=== PATIENT | female | born 1960 | race Caucasian/White ===

== ENCOUNTER 2023-06-27 11:15 | Emergency (ER) | payer OTHER, SELFPAY ==
[2023-06-27 11:30] VITALS: BP 152/66
--- NOTE | 2023-06-27 11:43 | ED.GENMED ---
History of Present Illness
General
Chief Complaint: Dizziness
Time Seen by Provider: 06/27/23 11:43
Travel History
Have you had any contact with someone who has COVID-19?: No
Do you have any symptoms of coronavirus? Fever > 100 degrees, chills, cough, shortness of breath, sore throat, loss of taste or smell, muscle aches, or headache?: No
History of Present Illness
History of Present Illness:
HPI: The patient presents from [facility]. She has been having left upper extremity ataxia for the past 36 hours. She is on Eliquis for A-fib. She was also found to be bradycardic upon arrival and states she had been taking increased
doses of metoprolol recently but most recently has been taking 25 mg of metoprolol twice daily including yesterday and again this morning.
EXAM:
GENERAL: Well appearing in no distress
HEENT: Moist oral mucosa
CARDIOVASCULAR: No murmurs, bradycardic heart rate with occasional irregularity, No chest wall tenderness
PULMONARY: No respiratory distress, breath sounds are clear and equal
ABDOMEN: Soft with no peritoneal signs, no tenderness
NEUROLOGIC: Excellent strength all extremities, there is some mild ataxia noted in the left upper extremity, there is minimal ataxia at the left lower extremity with [id number]
PSYCHIATRIC: Appropriate mental status, normal insight and judgement
EXTREMITIES: Nontender, no edema, moves all extremities equally
SKIN: No rash, no lesions
ED COURSE:
11:55 AM: I initially evaluated patient
NUMBER AND COMPLEXITY OF PROBLEMS ADDRESSED AT THE ENCOUNTER
� Chronic conditions affecting care: A-fib, high blood pressure, hyperlipidemia, she is a smoker
� Acute Exacerbation and/or Progression of Chronic Illness: This is an acute problem
� Differential Diagnosis includes: CVA, hemorrhagic stroke, symptomatic bradycardia, heart block
AMOUNT AND/OR COMPLEXITY OF DATA TO BE REVIEWED AND ANALYZED
� I performed an independent evaluation of and my interpretation is:
EKG: Sinus with frequent pauses of just over 2 seconds
[address]: CT brain shows no acute abnormality
X-rays:
Laboratory Studies: Hemoglobin continues to drop now down to 8.9, chemistries relatively unremarkable however elevation of BUN is noted. Bicarb slightly high at 33.
Other:
� Review of other/old records: The patient had a hemoglobin of 9.8 on 01/02/2023
� Clinical information was obtained by an independent historian: I spoke to cousin at bedside
� Prescriptions/Medications Considered but not given:
� Further testing considered but not performed:
RISK OF COMPLICATIONS AND/OR MORBIDITY OR MORTALITY OF PATIENT MANAGEMENT
� Social determinants of health affecting care: Lives at home
� Discussion with other providers: I briefly notified Dr. Pickens. I notified Dr. Durán of the patient does not want to stay in the hospital and the patient is to follow-up with him as well as an outpatient.
� Escalation of care including admission/observation vs risk of discharge considered: The patient has heart rates as low as 30. I am concerned of the left upper extremity ataxia. This is new over the past 36 hours. I am also
concerned about the drop in the hemoglobin. I did perform a digital rectal examination which revealed an empty rectal vault and no blood to test but will was tested was negative. At approximately 1:30 PM, the patient tells me that she absolutely
will not stay in the hospital. I went over risks and benefits of staying in the hospital. I informed her that her heart rate at times is severely low, it appears that she likely has had a stroke recently, and the anemia is much worse than prior.
Given the worsening anemia I recommended against any antiplatelets at this time.
Past History
Past History
ED Past Medical History: GERD, HTN, Hypercholesterolemia and Other (Bilateral hernias's)
ED Past Surgical History: Cholecystectomy and Other (Stents with repair of AAA)
Social History
Tobacco: Non-smoker
Alcohol: Occasional
Personal:
Living: with family
Phy Exam
Physical Exam
Physical Exam:
See HPI
Course
Orders/Labs/Results
Orders:
Orders
06/27/23 11:32
Electrocardiogram (*1) Urgent
Reason for Study: Chest Pain
EKG- Treatment ONCE
06/27/23 11:46
Complete Blood Count/With Diff Urgent
Magnesium Urgent
Comment: MAG ADDED ON BY FLOOR NOON -11-12
TSH Reflex To Free T4 Urgent
Troponin I Urgent
06/27/23 11:56
CT Head W/o Iv Contrast Urgent
Comment:
Reason For Exam: 36hr LUE ataxia
06/27/23 12:01
Add On- LAB Urgent
Tests Added?: magnesium
06/27/23 12:56
Comprehensive Metabolic Panel Urgent
Abnormal Lab Results
06/27/23 06/27/23
11:46 12:56
RBC 3.69 L 10^6/uL
(4.20-5.40)
Hgb 8.9 L g/dL
(12.0-16.0)
Hct 28.9 L %
(37.0-47.0)
MCV 78.3 L fL
(81.0-99.0)
MCH 24.1 L pg
(27.0-31.0)
MCHC 30.8 L g/dL
(33.0-37.0)
RDW 17.3 H %
(11.5-14.5)
Absolute Lymphs (auto) 0.9 L 10^3/uL
(1.2-3.4)
Absolute Monos (auto) 0.7 H 10^3/uL
(0.1-0.6)
Lymphocytes % 17.5 L %
(20.5-51.1)
Monocytes % 12.5 H %
(1.7-9.3)
Carbon Dioxide 33 H mmol/L
(22-30)
BUN 25 H mg/dl
(7-17)
06/27/23 11:46
06/27/23 12:56
Vital Signs
Initial and Last Documented VS:
Initial Vital Signs
Temp Pulse Resp BP Pulse Ox
98.2 F 75 16 152/66 98
06/27/23 11:30 06/27/23 11:30 06/27/23 11:30 06/27/23 11:30 06/27/23 11:30
Last Documented Vital Signs
Temp Pulse Resp BP Pulse Ox
98.2 F 43 12 116/46 93
06/27/23 11:30 06/27/23 13:30 06/27/23 13:30 06/27/23 12:15 06/27/23 13:40
*Critical Care Note
Total Time (30-74mins, 75-104mins- exclusive of procedures): Not Applicable
ED Attending Note
-
Portions of this chart may have been created with voice recognition software.� Occasional wrong word or��sound alike� substitutions may have occurred due to the inherent limitations of voice recognition software.
Discharge Plan
Departure
Patient Disposition: Against Medical Advice
Date of Disposition: 06/27/23
Time of Disposition: 13:53
Patient with high blood pressure during this ER visit?: Yes
Discharge Problem:
CVA (cerebral vascular accident)
Prescriptions:
No Action
Aldomine
2.5 mg PO DAILY
omeprazole [Prilosec] 10 MG capsule,delayed release(DR/EC)
10 mg PO DAILY
pantoprazole 40 MG tablet,delayed release (DR/EC)
40 mg PO BID
lisinopril 10 MG tablet
10 mg PO DAILY
metoprolol tartrate 50 MG tablet
50 mg PO DAILY
multivitamin with iron [Daily Multiple Vitamins/Iron] 1 EACH tablet
1 ea PO DAILY
calcium-vitamin D3-vitamin K 1 EACH tablet,chewable
1 ea PO BID
cephalexin 500 MG capsule
500 mg PO BID Qty: 19 0RF
tramadol 50 MG tablet
50 mg PO Q8HPRN PRN (Reason: Moderate pain) Qty: 10 0RF
Referrals:
Cisco Durán MD [Active] - Follow up in 2-3 days
Titus Morin MD [Active] - Follow up in 2-3 days
NONE,* [Family Provider] -
Activity Restrictions/Additional Instructions:
I have offered and strongly recommend that you stay in the hospital for further evaluation due to concerns that you may have had a stroke, your hemoglobin has been dropping, and your heart rate is extremely low. Since your heart rate is so low at
times, I suggest that you stop taking metoprolol for now. Uou have elected to leave AGAINST MEDICAL ADVICE. You are welcome to return here if worse. The CAT scan of your brain did not show any acute abnormality but this does not mean that you did
not have a stroke. I have given you the contact information for a local neurologist and I also recommend that you follow-up with your department head as well.
Interventions
Interventions:
*General Assessment Last Done: 06/27/23 11:30
ED- Neurological Assessment Last Done: 06/27/23 11:50
ED- Cardiac Assessment Last Done: 06/27/23 11:50
ED Swallowing Screen Last Done: 06/27/23 11:56
[2023-06-27 11:45] VITALS: BP 139/64
[2023-06-27 11:50] VITALS: BMI 26.0
[2023-06-27 12:02] LABS: % Basophils 0.8 % (0-2); % Eosinophils 2.5 % (0-6); % Immature Granulocytes 0.2 % (0-0.5); % Lymphocytes 17.5 % (20.5-51.1); % Monocytes 12.5 % (1.7-9.3); % Neutrophils 66.5 % (42.2-75.2); Absolute Eosinophils 0.1 10^3/uL (0-0.7); Absolute Lymphocytes 0.9 10^3/uL (1.2-3.4); Absolute Monocytes 0.7 10^3/uL (0.1-0.6); Absolute Neutrophils 3.5 10^3/uL (1.4-6.5); Hematocrit 28.9 % (37.0-47.0); Hemoglobin 8.9 g/dL (12.0-16.0); Mean Corp Hgb Conc. 30.8 g/dL (33.0-37.0); Mean Corpuscular Hgb 24.1 pg (27.0-31.0); Mean Corpuscular Volume 78.3 fL (81.0-99.0); Mean Platelet Volume 10.2 fL (7.4-10.4); Nucleated Red Blood Cells % 0 %; Platelet Count 234 10^3/uL (130-400); Red Blood Cell Count 3.69 10^6/uL (4.20-5.40); Red Cell Dist. Width 17.3 % (11.5-14.5); White Blood Cell Count 5.3 10^3/uL (4.8-10.8)
[2023-06-27 12:11] VITALS: BP 118/83
[2023-06-27 12:15] VITALS: BP 116/46
[2023-06-27 12:33] LABS: Troponin I < 0.012 ng/ml
[2023-06-27 12:52] LABS: TSH Reflex To Free T4 2.16 uIU/ml (0.47-4.68)
[2023-06-27 13:28] LABS: ALT (SGPT) 13 U/L (0-35); AST (SGOT) 30 U/L (14-36); Albumin 3.6 g/dl (3.5-5.0); Alkaline Phosphatase 112 U/L (38-126); Blood Urea Nitrogen 25 mg/dl (7-17); Calcium 8.7 mg/dl (8.4-10.2); Carbon Dioxide 33 mmol/L (22-30); Chloride 104 mmol/L (98-107); Estimated Creatinine Clearance 58 ml/min; Glucose 95 mg/dl (70-99); Potassium 4.4 mmol/L (3.5-5.1); Sodium 136 mmol/L (135-145); Total Bilirubin 0.7 mg/dl (0.2-1.3); Total Protein 6.3 g/dl (6.3-8.2); eGFR > 60.00
--- NOTE | 2023-06-27 13:45 | EDRN ---
pt ambulating off unit. Was able to be redirected. LAbs resulted MD made aware. Pt continues to report the urge to leave AMA. PIV removed per pt request.
[2023-06-27 15:19] LABS: Magnesium 1.6 mg/dl (1.6-2.3)
== END 2023-06-27 14:10 | disposition left against medical advice (07) ==
LOC: EMR 11:15
PROVIDERS: Emergency Medicine; EMERGENCY PHYSICIAN Emergency Medicine
DX: I63.9 Cerebral infarction, unspecified (principal); I48.91 Unspecified atrial fibrillation; K21.9 Gastro-esophageal reflux disease without esophagitis; I10 Essential (primary) hypertension; E78.00 Pure hypercholesterolemia, unspecified; Z79.01 Long term (current) use of anticoagulants; Z79.899 Other long term (current) drug therapy; Z90.49 Acquired absence of other specified parts of digestive tract
CPT/HCPCS: 99284; 70450; 80053; 83735; 84443; 84484; 85025; 93005

== ENCOUNTER 2023-07-02 13:34 | Inpatient (IN) | payer OTHER, SELFPAY ==
[2023-06-29 22:20] VITALS: BP 148/75
[2023-06-29 22:49] VITALS: BP 165/76
[2023-06-29 23:01] VITALS: BP 165/76
--- NOTE | 2023-06-29 23:03 | ED.GENMED ---
History of Present Illness
General
Chief Complaint: Breathing Problem
Source: patient
Time Seen by Provider: 06/29/23 22:43
Nursing documentation reviewed up to this point in time: agreed with
Travel History
Have you had any contact with someone who has COVID-19?: No
Do you have any symptoms of coronavirus? Fever > 100 degrees, chills, cough, shortness of breath, sore throat, loss of taste or smell, muscle aches, or headache?: Yes
Symptoms:: shortness of breath
History of Present Illness
History of Present Illness:
Patient is a 62-year-old female with past medical history of A-fib AAA perforated ulcer hypertension presents to the ER for evaluation. Patient was seen here June 27 and signed out against medical vice. Patient at that time was initially sent
by cardiology for ataxia(left upper extremity). Patient reports she started with difficulty walking balance issues a week ago and noticed left arm weakness left weakness several days -1 week ago. She continues to complain of weakness in her left
upper extremity left lower extremity. She also complains of swelling to left upper lower extremity. She is on anticoagulation for A-fib and has not missed a dose. She does complain of shortness of breath with talking. She denies any chest pain.
Past History
Past History
ED Past Medical History: GERD, HTN, Hypercholesterolemia and Other (Bilateral hernias's)
ED Past Surgical History: Cholecystectomy and Other (Stents with repair of AAA)
Social History
Tobacco: Non-smoker
Alcohol: Occasional
Personal:
Living: with family
Phy Exam
General Physical Exam
General Presentation: no apparent distress
General age: appears stated age
General Skin: warm and dry
General Habitus: normal
General Mental: alert
General Hydration: appears well hydrated
Cardiovascular Exam
Cardiovascular Exam: normal peripheral pulses and bradycardia
Pulmonary Exam
Pulmonary Exam: lungs clear and no respiratory distress
Gastrointestinal Exam
Gastrointestinal Exam: soft and other (brown stools heme positive )
Neurological Exam
Neurological Exam: alert, oriented x3, no sensory deficits and other (weakness to left u/e left l/e )
Cerebellar
Cerebellar Function: other (left finger to nose is abnormal )
Musculoskeletal Exam
Musculoskeletal Exam: full ROM and other (+ swelling to lle and lue )
Skin Exam
Skin Exam: normal color and warm/dry
Psychiatric Exam
Psychiatric Exam: normal mood/affect
Scores
Heart Failure Risk
Heart Failure Risk Score: Not Applicable
Course
Orders/Labs/Results
Orders:
Orders
06/29/23 22:24
EKG [Electrocardiogram (*1)] Urgent
Reason for Study: Shortness of Breath
06/29/23 22:25
EKG- Treatment ONCE
06/29/23 22:58
Cardiac Monitoring- Treatment ONCE
IV Insert/Care/Rem.- Treatment PRN
06/29/23 22:59
BNP [NT-proBNP] Urgent
Complete Blood Count/With Diff Urgent
Comprehensive Metabolic Panel Urgent
Troponin I Urgent
06/29/23 23:13
Lorazepam [Ativan] 0.5 mg PO NOW STA
06/30/23 00:00
US Periph Venous LOWER Ext LT Urgent
Reason For Exam: swelling
US Periph Venous UPPER Ext LT Urgent
Reason For Exam: swelling
06/30/23 00:16
CXR2 [CR Chest - 2 Views ] Urgent
Comment:
Reason For Exam: SOB
06/30/23 00:35
Lorazepam [Ativan] 0.5 mg IV NOW STA
06/30/23 00:37
Admit/Transfer Patient As Directed
Co-Sign Provider:
Level of Care: Observation services
Assign to:: Telemetry
Physician / Group: Hernando
Diagnosis: Weakness / Ataxia
Reason for Telemetry: CVA/TIA
Date to Stop Telemetry: 07/03/23
Time to Stop Telemetry: 11:00
06/30/23 00:48
Code Status As Directed
Resuscitation Status: Full Code
06/30/23 01:00
Flush (0.9% Sodium Chloride) [Flush (Nss)] See Dose Instructions IV PER PROTOCOL
07/03/23 11:00
DC Protocol for Telemetry ONCE
Abnormal Lab Results
06/29/23
22:59
RBC 3.36 L 10^6/uL
(4.20-5.40)
Hgb 8.0 L g/dL
(12.0-16.0)
Hct 25.0 L %
(37.0-47.0)
MCV 74.4 L fL
(81.0-99.0)
MCH 23.8 L pg
(27.0-31.0)
MCHC 32.0 L g/dL
(33.0-37.0)
RDW 17.4 H %
(11.5-14.5)
Absolute Lymphs (auto) 0.9 L 10^3/uL
(1.2-3.4)
Absolute Monos (auto) 0.7 H 10^3/uL
(0.1-0.6)
Lymphocytes % 19.3 L %
(20.5-51.1)
Monocytes % 13.5 H %
(1.7-9.3)
Sodium 134 L mmol/L
(135-145)
06/29/23 22:59
06/29/23 22:59
Vital Signs
Initial and Last Documented VS:
Initial Vital Signs
Temp Pulse Resp BP Pulse Ox
98.2 F 56 18 148/75 97
06/29/23 22:20 06/29/23 22:20 06/29/23 22:20 06/29/23 22:20 06/29/23 22:20
Last Documented Vital Signs
Temp Pulse Resp BP Pulse Ox
98.2 F 61 16 179/65 93
06/29/23 22:20 06/30/23 00:47 06/30/23 00:30 06/30/23 00:00 06/30/23 00:47
Auto Leasing Manager consulted with Physician
Auto Leasing Manager consulted with physician?: Yes
Name of Physician Consulted: Jyotsna
MDM/Problems Addressed
Differential Diagnosis Includes:
Not limited to anemia, CVA, DVT
MDM/Problems Addressed:
Patient is a 62-year-old female who was here in the ER 2 days ago for ataxia. Patient was seen by cardiology at the time but signed out AMA. Patient is here back for evaluation. She continues with left upper lower extremity weakness. She also
has complaints of left upper lower extremity swelling. She does feel short of breath at times with exertion but denies any chest pain. Patient arrives awake alert no acute distress. She does have obvious left upper and left lower extremity
weakness. Does have swelling to left lower extremity as well as left hand. She says that she has not missed a dose of Eliquis she is on this for history of A-fib and is followed by [facility].
Ultrasound ordered. Patient was found to be anemic previously 2 days ago in the ER and was also found to be bradycardic as low as the 30s in the ER. Today patient's hemoglobin is 8.0 which is a decrease from 8.9 on the sixth. She has brown stools
but heme positive. Will admit for anemia left side weakness poss cva
Chronic conditions affecting care:
afib on eliquis now anemic heme pos stools
*Radiology
Radiology exam reviewed: preliminary read by ED provider
*Pulse Oximetry
Patient hypoxic: no
*EKG
Interpreted by ED Provider?: Yes
Heart Rate: 63
Rate: normal
Rhythm: sinus
Ischemia: non-specific ST changes
*Critical Care Note
Total Time (30-74mins, 75-104mins- exclusive of procedures): Not Applicable
ED Attending Note
-
Portions of this chart may have been created with voice recognition software.� Occasional wrong word or��sound alike� substitutions may have occurred due to the inherent limitations of voice recognition software.
Discharge Plan
Departure
Patient Disposition: Admit
Date of Disposition: 06/30/23
Time of Disposition: 00:17
Admit to: Telemetry
Admit to doctor: hernando
Presentation/result/management discussed w/ accepting MD/DO: Hospitalist
Patient with high blood pressure during this ER visit?: Yes
Covid-19: Not Applicable
Discharge Problem:
Bradycardia, left upper and lower extremity weakness, Anemia
Prescriptions:
No Action
citalopram [Celexa] 20 mg Tablet
20 mg PO DAILY
Excedrin Extra Strength 250-250-65 mg Tablet
1 tab PO Q6H PRN (Reason: Pain)
Eliquis 5 mg Tablet
5 mg PO BID
metoprolol tartrate 37.5 mg Tablet
37.5 mg PO BID
Referrals:
NONE,* [Family Provider] -
[2023-06-29 23:19] LABS: % Basophils 0.4 % (0-2); % Eosinophils 3.7 % (0-6); % Immature Granulocytes 0.4 % (0-0.5); % Lymphocytes 19.3 % (20.5-51.1); % Monocytes 13.5 % (1.7-9.3); % Neutrophils 62.7 % (42.2-75.2); Absolute Eosinophils 0.2 10^3/uL (0-0.7); Absolute Lymphocytes 0.9 10^3/uL (1.2-3.4); Absolute Monocytes 0.7 10^3/uL (0.1-0.6); Mean Corpuscular Hgb 23.8 pg (27.0-31.0); Mean Corpuscular Volume 74.4 fL (81.0-99.0); Mean Platelet Volume 9.8 fL (7.4-10.4); Nucleated Red Blood Cells % 0 %; Platelet Count 198 10^3/uL (130-400); Red Blood Cell Count 3.36 10^6/uL (4.20-5.40); Red Cell Dist. Width 17.4 % (11.5-14.5); White Blood Cell Count 4.8 10^3/uL (4.8-10.8)
[2023-06-29] MEDS: ATIVAN 0.5 MG PO (23:19)
[2023-06-29 23:40] LABS: NT-proBNP 1590 pg/ml; Troponin I 0.015 ng/ml
[2023-06-29 23:46] LABS: ALT (SGPT) 12 U/L (0-35); Albumin 3.7 g/dl (3.5-5.0); Blood Urea Nitrogen 17 mg/dl (7-17); Calcium 9.1 mg/dl (8.4-10.2); Carbon Dioxide 28 mmol/L (22-30); Chloride 105 mmol/L (98-107); Glucose 88 mg/dl (70-99); Sodium 134 mmol/L (135-145); Total Bilirubin 0.7 mg/dl (0.2-1.3); Total Protein 6.3 g/dl (6.3-8.2); eGFR > 60.00
[2023-06-30] VITALS (12 sets, daily range): BP systolic 114–182; BP diastolic 55–106; PULSE 44–89; O2SAT 97–98; BMI 25.0
[2023-06-30 00:08] LABS: AST (SGOT) 33 U/L (14-36); Alkaline Phosphatase 102 U/L (38-126)
[2023-06-30] MEDS: ATIVAN 0.5 MG IV (00:44)
--- NOTE | 2023-06-30 00:53 | HPS.HSE ---
Family Physician
-
Family Physician: * NONE
Chief Complaint
-
Weakness, Swelling, Pain
History of Present Illness
Patient is a 62y F with PMH significant for hypertension and atrial fibrillation who presents to ED complaining of anxiety, SOB, neck pain and weakness. Patient is restless and anxious at the time of my examination and history is somewhat
limited as a result. Patient reports symptoms of pain 'all over', anxiety, shortness of breath, nausea, etc for about one week or so. She was seen here in the ED on 06/27 for similar symptoms - though primarily for weakness / ataxia of the LUE.
Hospitalization was recommended at that time; however, patient refused and signed out of the ED AMA.
Patient was noted to be bradycardic into the 30s on that visit and was advised to stop taking her metoprolol.
Patient admits that she had been taking 'extra doses' due to sense of heart racing and palpitations. She is not sure how many extra pills she took. She states that she has not taken any metoprolol since her 06/27 visit.
Patient denies any recent injury, fall or trauma. She has scattered crusted lesions, ecchymoses, etc which she attributes to a puppy at home / scratches.
She complains of pain in the neck and notes pain shooting into both arms with rotation of the neck. She notes weakness on the L in the arm and the leg. These symptoms have been present for about one week and are not improving / progressing.
Patient states that she had a stroke in 03/2022 with facial droop and aphasia. She states that her symptoms fully resolved and she had no residual following this.
At the time of my examination, patient is anxious / mildly agitated and is quite restless. Patient states that she is a 'social' drinker. She estimates about 4 drinks per week. She does admit that she had alcohol today and yesterday.
Patient also states that she takes Excedrin every day - typically about 4 tabs daily - for various 'aches and pains'.
Medical History
Past Medical History
Past Medical History: Reports Other
Additional Past Medical History:
Paroxysmal Atrial Fibrillation
Prior CVA
Hypertension
Bladder Mass
Anxiety / Depression
Past Surgical History: Reports Other
Additional Past Surgical History:
Hernia Repair
Bladder Mass Excision
Open Cholecystectomy (Ruptured GB / Sepsis)
Social History
Tobacco: Smoker (Current every day smoker.)
Alcohol: Occasional (Patient states about 4 per week. Admits to daily use each of the past several days.)
Family History
Family History: Not pertinent
Allergies / Home Medications
Allergies reflects when Allergies were last updated in [employer].
Home Medications with original date entered in [facility]
Allergy/Medication List:
Allergies
Allergy/AdvReac Type Severity Reaction Status Date / Time
Sulfa (Sulfonamide Allergy Unknown Verified 06/29/23 22:23
Antibiotics)
Home Medications
apixaban 5 mg tablet (Eliquis) 5 mg PO BID 06/30/23
jyietls-ufnnxluxwbrpy-yzgcraoa 250 mg-250 mg-65 mg tablet (Excedrin Extra Strength) 1 tab PO Q6H PRN Pain 06/30/23
citalopram 20 mg tablet (Celexa) 20 mg PO DAILY 06/30/23
metoprolol tartrate 37.5 mg tablet 37.5 mg PO BID 06/30/23
Review of Systems
-
History Source: Patient
A 12 point ROS was completed and negative except as noted: Yes
Constitutional: Reports Fatigue; Denies Fever or Chills
EENT: Denies Sore Throat
Respiratory: Reports Trouble Breathing; Denies Cough
Cardiac: Reports Palpitations; Denies Chest Pain, Diaphoresis or Syncope
Abdomen/GI: Reports Nausea; Denies Abdominal Pain, Vomiting, Diarrhea, Bloody Stools, Black Stools or Anorexia
: Denies Dysuria, Frequency or Flank Pain
Musculoskeletal: Reports Joint Pain, Joint Swelling, Edema (Left arm and leg.) and Other (Neck pain.)
Neurological: Reports Dizzy, Headache, Weakness, Numbness and Other (Ataxia)
Psych: Reports Depression and Anxiety
Physical Exam
Vital Signs
Vital Signs
Temp Pulse Resp BP Pulse Ox
98.2 F 58 20 165/76 95
06/29/23 22:20 06/29/23 23:01 06/29/23 23:01 06/29/23 23:01 06/29/23 23:01
Physical Exam
General: Other (62y F restless and anxious in moderate distress.)
HEENT: Moist mucous membranes and PERRLA
Respiratory: Clear; No Wheezes, Rales or Rhonchi
Cardiac: S1/S2 and Regular Rhythm; No Murmur
GI: Soft, Non Tender, Non Distended and Normal Bowel Sounds
Musculoskeletal: No Clubbing, No Cyanosis and Other (1+ pitting edema LUE and LLE.)
Skin: Other (Scattered crusted lesions / healing excoriations and ecchymoses.)
Neuro: Awake, Alert and Other (Weakness in L hip flexion and L shoulder movements / ABduction. Distal strength (knee and elbow) seems intact. No facial droop. Speech is clear / coherent.)
Psych: Anxious
Laboratory Results
-
06/29/23 22:59
06/29/23 22:59
Laboratory Results
Total Bilirubin 0.7 mg/dl (0.2-1.3) 06/29/23 22:59
AST 33 U/L (14-36) 06/29/23 22:59
ALT 12 U/L (0-35) 06/29/23 22:59
Alkaline Phosphatase 102 U/L (38-126) 06/29/23 22:59
Troponin I 0.015 ng/ml 06/29/23 22:59
Impression/Plan
-
A/P: Patient is a 62y F with PMH significant for A-Fib, anxiety and hypertension who presents to ED for evaluation of myriad complaints.
Left Sided Weakness
Prior CVA
Neck Pain
- Observe overnight for further evaluation and treatment.
- Symptoms have been present for one week and not a candidate for TNKase, etc.
- CT head done 06/27 was unremarkable.
- Follow for changes in Neuro exam.
- MRI / Neuro eval in AM.
- PT / OT / Speech evaluations.
- Check AM lipids.
- Daily ASA for now and will hold Eliquis (see below).
- Given concurrent neck discomfort and symptoms that are occasionally noted as bilateral - will check MR neck as well for evidence of compressive radiculopathy.
Benign Hypertension
- Hold metoprolol given recent issues with bradycardia (likely due to overdose / inappropriate use).
- Begin losartan for BP control. Hydralazine as needed for very high BP.
- Adjust regimen as needed for adequate BP control.
Paroxysmal Atrial Fibrillation
Palpitations / Bradycardia (iatrogenic)
- Monitor on telemetry overnight.
- Current in sinus rhythm in the 60s.
- Continue to hold metoprolol for now as noted above.
- Patient admits to taking several extra doses for palpitations recently.
Microcytic Anemia
Heme Positive Stool
- Acuity / chronicity of this is unclear with Hgb = 9.8 in December 2022.
- Microcytosis likely reflects iron deficiency and probable chronic GI losses.
- Patient admits to regular Excedrin use and suspect alcohol use is understated as well (see below).
- Hold Eliquis and Excedrin. Continue low-dose ASA alone for now with suspected CVA symptoms as noted above.
- IV PPI BID.
- GI evaluation for possible endoscopic examination.
- Follow H&H for any changes. Monitor for overt evidence of active blood loss.
Anxiety / Depression
Alcohol Use Disorder (possible)
- Patient extremely restless in the ED. Reports prior history of 'panic attacks' - 2 episodes in her life.
- Admits to alcohol use today and yesterday - even with recent health issues, ED visit of 2/6, etc.
- ? understated frequency / volume of use.
- Follow MSAS for now. Treat symptoms of withdrawal and / or anxiety with PRN BZDs.
- Check alcohol level, UDS, etc.
DVT Prophylaxis: US pending to rule out LLE and LUE clots given edema. GI bleeding possibility as noted above. Avoid mechanical or pharmacologic prophylaxis for now. SCDs can be started if US are negative.
Code Status: Full
[2023-06-30 02:35] LABS: Hematocrit 26.4 % (37.0-47.0); Hemoglobin 8.6 g/dL (12.0-16.0); Mean Corp Hgb Conc. 32.6 g/dL (33.0-37.0); Mean Corpuscular Hgb 24.4 pg (27.0-31.0); Mean Platelet Volume 9.8 fL (7.4-10.4); Platelet Count 215 10^3/uL (130-400); Red Blood Cell Count 3.52 10^6/uL (4.20-5.40); Red Cell Dist. Width 17.4 % (11.5-14.5); White Blood Cell Count 4.9 10^3/uL (4.8-10.8)
[2023-06-30] MEDS: ULTRAM 50 MG PO ×3 (02:44→16:41)
[2023-06-30 02:55] LABS: Iron 37 ug/dl (37-170)
[2023-06-30 02:57] LABS: Blood Urea Nitrogen 18 mg/dl (7-17); Calcium 9.3 mg/dl (8.4-10.2); Carbon Dioxide 33 mmol/L (22-30); Chloride 104 mmol/L (98-107); Estimated Creatinine Clearance 74 ml/min; Glucose 102 mg/dl (70-99); HDL Cholesterol 60 mg/dl; LDL Cholesterol, Calculated 61 mg/dl; Potassium 4.6 mmol/L (3.5-5.1); Sodium 137 mmol/L (135-145); Total Cholesterol 139 mg/dl (50-199); Triglyceride 93 mg/dl (10-149); Very Low Density Lipoprotein 18 mg/dl (0-30); eGFR > 60.00
[2023-06-30 03:05] LABS: Percent Saturation 8 % (20-50); Total Iron Binding Capacity 424 ug/dl (265-497)
[2023-06-30 03:06] LABS: Alcohol None Detected
[2023-06-30] MEDS: LOPRESSOR 5 MG IV (03:13)
[2023-06-30 03:27] LABS: TSH Reflex To Free T4 0.57 uIU/ml (0.47-4.68)
[2023-06-30 04:26] LABS: Amphetamines Negative (Negative); Barbiturates Negative (Negative); Benzodiazepines Negative (Negative); Buprenorphine Negative (Negative); Cocaine Negative (Negative); Marijuana Negative (Negative); Methadone Negative (Negative); Methamphetamines Negative (Negative); Opiates Negative (Negative); Phencyclidine Negative (Negative); Tricyclic Antidepressants Negative (Negative)
[2023-06-30] MEDS: TYLENOL 650 MG PO ×2 (06:31→20:32)
--- NOTE | 2023-06-30 07:45 | CON.NEURO ---
Neuro Assessment/Plan
Assessment
IMPRESSIONS/RECOMMENDATIONS:
Abrupt change in left arm and leg strength in a patient with prior stroke described as including symptoms of aphasia
Differential diagnosis would include recrudescence of presumed right middle cerebral artery ischemic stroke, recurrent ischemic stroke, cervical spine myelitis
Plan
Check MRI of brain
Check MRI of cervical spine based on the patient's reported significant neck pain at the start of symptomatology
Consider lumbar puncture
No indication at this time for the discontinuance of apixaban based on the patient's longstanding symptomatology
This time for the use of atorvastatin based on low total cholesterol and low LDL
Rehabilitation evaluations
DVT prophylaxis
Check blood work for potential metabolic abnormalities
Provide B12 replacement if level less than 400
Provide iron by IV and by mouth if ferritin less than 75 to reduce restlessness
Will continue to follow patient. Thank you.
Consultation
Order
Date of Consultation: 06/30/23
Requesting Provider: Hospitalists
Reason for Consult: Left-sided weakness
Subjective/Objective
Subjective Data
Date of Service: June 30, 2023
Patient presented to this [facility]'s emergency department on June 27, 2023 due to left upper and lower extremity weakness of new onset as well as gait instability. After presenting, the patient signed out AGAINST MEDICAL ADVICE, returning last
evening. Of note is that in her presentation on June 27, the patient was found to have profound bradycardia with heart rates in the 30s and significant anemia.
Started then progressed and now 'no dexterity in my hand.' Patient also reported having difficulty with ambulation and falling frequently without head injury. At the time of onset of left hemibody weakness, the patient also reported significant
neck pain. Patient reports not having had similar left-sided weakness previously although she does report having had a stroke in March 2022 associated with significant aphasia. Treatment was not in this hospital and she reports that she was
subsequently placed on apixaban as a preventative therapy.
Currently, the patient reports that her left sided weakness has not been progressive although it is debilitating. There are no known additional associated symptoms and no known modifying factors.
Objective Data
Vital Signs
Temp Pulse Resp BP Pulse Ox
36.3 C 100 18 144/73 96
06/30/23 04:37 06/30/23 04:37 06/30/23 04:37 06/30/23 04:37 06/30/23 04:37
Lab Results
06/30/23 02:23
06/30/23 02:23
Sodium 137 mmol/L (135-145) 06/30/23 02:23
Potassium 4.6 mmol/L (3.5-5.1) 06/30/23 02:23
BUN 18 mg/dl (7-17) H 06/30/23 02:23
Glucose 102 mg/dl (70-99) H 06/30/23 02:23
Calcium 9.3 mg/dl (8.4-10.2) 06/30/23 02:23
Abf-Y-Cvbbygfmmgt Pept 1590 pg/ml 06/29/23 22:59
LDL Cholesterol, Calc 61 mg/dl 06/30/23 02:23
Ur Buprenorphine Negative (Negative) 06/30/23 03:53
Patient Allergies
Sulfa (Sulfonamide Antibiotics) Allergy (Verified 06/29/23 22:23)
Unknown
CVA Assessment
Onset of Stroke Symptoms
Date of onset of symptoms: 06/19/23
Time of onset of symptoms: 06:00
Time pt last seen normal is known: Yes
Date last time pt seen normal: 06/19/23
Time last time pt seen normal: 02:00
Modified Jasper Score (MRS)
-
MRS Score:
Review of Systems
-
History Source: Patient
All other systems: Reviewed and negative
EENT: Negative Decreased Vision or Swallowing Difficulty
Respiratory: Other (PAUL); Negative Trouble Breathing
Cardiac: Negative Chest Pain
Abdomen/GI: Negative Incontinence of Stool
Genitourinary: Negative Incontinence
Musculoskeletal: Neck Pain (started 06/19/2023 worsening); Negative Back Pain
Neuro: Dizzy, Headache and Other (falling 3x by collapse no head injury)
Physical Exam
-
General: No Apparent Distress and Appears Stated Age
Eyes: OU Absent Papilledema, Round OU, Seatac Conjunctivae and No Ptosis
HEENT: Anicteric and Moist Mucous Membranes
Neck: Full Range of Motion
Respiratory: No Dyspnea
Cardiac: No JVD
GI: Non-distended
Skin: Other (Numerous cuts and abrasions the patient has attributed to her dog)
Extremities: No Clubbing, No Cyanosis and No Edema
Psych: Negative Intact Judgement/Insight
Extended Neurological Exam
Mood & Affect: Negative Affect Unremarkable (Easily irritable)
Attention Span & Concentration: Awake, Alert, Interactive, Closes Eyes after Stimulation and Mild Difficulty with 2 Step Request
Memory: Unremarkable
Tremor: Hand Tremor Absent and Head Tremor Absent
Speech: Quality Unremarkable and Quantity Unremarkable
Cranial Nerve II: Left Eye: Pupillary Reactivity Unremarkable, Pupillary Size Unremarkable and Visual Ferguson Intact
Cranial Nerve II: Right Eye: Pupillary Reactivity Unremarkable, Pupillary Size Unremarkable and Visual Ferguson Intact
Cranial Nerves III, IV, : Extraocular Movement: Extraocular Movement Full in all Directions
Cranial Nerve V: Facial Sensation: Facial Sensation Unremarkable to Cold
Cranial Nerve VII: Facial Symmetry: Normal Facial Symmetry
Cranial Nerve VIII: Hearing: Unremarkable Hearing to Normal Conversational Volume
Cranial Nerves IX, X: Palate Movement: Palate Elevation Symmetric
Cranial Nerve XI: Shoulder Shrug: Unremarkable
Cranial Nerve XII: Tongue Protusion: Midline
Muscle Strength, Overall: Full Throughout
Muscle Bulk & Tone: Bulk Unremarkable and Tone Unremarkable
Pronator Drift: Drift in Left Upper Extremity, Drift in Right Upper Extremity, Drift in Left Lower Extremity and Drift in Right Lower Extremity
Deep Tendon Reflexes: 3+ (In bilateral lower extremities; no clonus at ankles)
Touch Sensation: Unremarkable
Coordination: Xohppw-forc-bwetms Testing Unremarkable and Other (Reduced dexterity left hand)
Babinski Sign: Present on Right; Negative Present on Left
Gait & Station: Unable to Assess
Data Reviewed
-
CT Head: Report Reviewed
MRI Head: Report Reviewed and Image Reviewed
MRI Cervical Spine: Pending
Labs: Pending
Reviewed with: Physician and Patient
Old Records: Summarized
Medications
-
Active Medications
Generic Name Dose Route Start Last Admin
Trade Name Freq PRN Reason Stop Dose Admin
Acetaminophen 650 mg 06/30/23 02:08 06/30/23 06:31
Acetaminophen 325 Mg Tablet PO 07/28/23 02:07 650 mg
Q4HPRN PRN Administration
Mild Pain / Temp > 101
Aspirin 81 mg 06/30/23 08:00
Aspirin 81 Mg Chewable Tablet PO 07/28/23 07:59
DAILY CRISTOFER
Folic Acid 1 mg 06/30/23 08:00
Folic Acid 1 Mg Tablet PO 07/28/23 07:59
DAILY CRISTOFER
Hydralazine HCl 5 mg 06/30/23 02:08
Hydralazine 20 Mg/Ml Vial IV 07/28/23 02:07
Q6HPRN PRN
SBP > 180
Folic Acid 1 mg/ Sodium 50.2 mls @ 200.8 mls/hr 06/30/23 02:08
Chloride IV 07/28/23 02:07
DAILYPRN PRN
if NPO
Lorazepam 1 mg 06/30/23 02:08
Lorazepam 1 Mg Tablet PO 07/28/23 02:07
Q2HPRN PRN
MSAS 5-7
Lorazepam 1 mg 06/30/23 02:08
Lorazepam 2 Mg/Ml Vial IV 07/28/23 02:07
Q1HPRN PRN
MSAS 8-11
Lorazepam 2 mg 06/30/23 02:08
Lorazepam 2 Mg/Ml Vial IV 07/28/23 02:07
Q1HPRN PRN
MSAS > 11
Losartan Potassium 25 mg 06/30/23 08:00
Losartan 25 Mg Tablet PO 07/28/23 07:59
DAILY CRISTOFER
Pantoprazole Sodium 40 mg 06/30/23 08:00
Pantoprazole Sodium 40 Mg/10 Ml Vial IV 07/28/23 07:59
BID CRISTOFER
Sodium Chloride 0 flush 06/30/23 01:00
Sodium Chloride 0.9% (Flush) Syringe IV 07/28/23 00:59
PER PROTOCOL CRISTOFER
Sodium Chloride 0 ml 06/30/23 02:08
Sodium Chloride 0.9% (Preservative Free) 10 Ml Vial IV 07/28/23 02:07
PRN PRN
To dilute IV Ativan
Protocol
Sodium Chloride 10 ml 06/30/23 08:00
Sodium Chloride 0.9% (Preservative Free) 10 Ml Vial IV 07/28/23 07:59
BID CRISTOFER
Thiamine HCl 200 mg 06/30/23 08:00
Thiamine (100 Mg/Ml) 2 Ml Vial IV 07/02/23 20:01
Q12 CRISTOFER
Thiamine HCl 100 mg 07/03/23 08:00
Thiamine 100 Mg Tablet PO 07/31/23 07:59
BID CRISTOFER
Tramadol HCl 50 mg 06/30/23 02:08 06/30/23 02:44
Tramadol Hcl 50 Mg Tablet PO 07/28/23 02:07 50 mg
Q6HPRN PRN Administration
moderate pain
Home Medications
Medication Instructions Recorded
apixaban 5 mg tablet (Eliquis) 5 mg PO BID 06/30/23
holmaiv-rymdhhdgafadw-vhgozbsb 250 1 tab PO Q6H PRN Pain 06/30/23
mg-250 mg-65 mg tablet (Excedrin
Extra Strength)
citalopram 20 mg tablet (Celexa) 20 mg PO DAILY 06/30/23
metoprolol tartrate 37.5 mg tablet 37.5 mg PO BID 06/30/23
Past History
Past History
ED Past Medical History: Arrthythmia (Atrial fibrillation), GERD, HTN, Hypercholesterolemia and Other (Bilateral hernias, MRSA)
ED Past Surgical History: Cholecystectomy and Other (Stents with repair of AAA; herniorrhaphy x 3)
Social History
Tobacco: Former smoker
Alcohol: Occasional
Personal:
Living: with family
Family History
Family History: Diabetes, Hypertension and CAD
[2023-06-30 09:31] LABS: IgA 179 mg/dl (70-400)
--- NOTE | 2023-06-30 09:55 | PTCARENOTE ---
HR down to [address]. Hospitalist made aware.
[2023-06-30 09:56] LABS: Vitamin B12 360 pg/ml (239-931)
[2023-06-30] MEDS: FOLVITE 1 MG PO (10:05)
[2023-06-30] MEDS: LOW STRENGTH ASPIRIN 81 MG PO (10:05)
[2023-06-30] MEDS: COZAAR 25 MG PO (10:05)
[2023-06-30] MEDS: PROTONIX IV 40 MG IV ×2 (10:06→20:30)
[2023-06-30] MEDS: NSS (PRESERVATIVE FREE) 10 ML IV ×2 (10:06→20:31)
[2023-06-30] MEDS: THIAMINE INJECTION 200 MG IV ×2 (10:08→20:32)
[2023-06-30] MEDS: ATIVAN 1 MG PO ×3 (10:10→21:53)
--- NOTE | 2023-06-30 10:13 | PTOTSP ---
Speech Therapy Evaluation
Oropharyngeal function appears intact. Cog-language at baseline. No further acute NEWSPAPER VENDOR needs.
Recommend
1. Regular Solids / Thin liquids
2. Meds oral per pt preference and RN discretion.
3. NEWSPAPER VENDOR signing off please reconsult as needed
--- NOTE | 2023-06-30 10:17 | CON.GI ---
Addendum entered and electronically signed by Nikki Carson MD 06/30/23 11:33:
I saw and examined the patient.
The INFANTRY OPERATIONS SPECIALIST or PA's note was reviewed and I agree with the note.
Comment: 62-year-old female with history of perforated gastric ulcer in 2019 as per patient status post open repair,(unclear exactly what was done), this was in [place] and she was told that it is related to Excedrin use, history of perforated
gallbladder with prolonged hospitalization, history of CVA on Eliquis presenting with pain in the neck and also left arm and leg with swelling as per patient. GI consulted for iron deficiency anemia and heme positive stool. Patient reports history
of anemia, is to follow-up with her GI [place], had EGD and colonoscopy last year, as per patient, 1 colon polyp removed, not sure what EGD findings were. History of previous colonoscopies, unclear results. Denies any abdominal pain, nausea
or vomiting except yesterday. No heartburn, takes pantoprazole 40 mg daily as per patient. No trouble swallowing. No constipation, diarrhea, blood in the stool or black stool. Continues to take Excedrin daily, 2-4 a day for neck pain and
headache and also Advil 1-2 a day. On Eliquis, last dose yesterday AM.
-Iron deficiency anemia, heme positive stool without any overt bleeding
Reports history of chronic anemia as well with history of perforated gastric ulcer status postrepair in 2019 in [place].
Continues to take Excedrin/Advil daily for neck pain/headaches
Rule out ulcer disease versus esophagitis versus other
Will get records from her previous GI regarding EGD /colonoscopy that was done in 2022
She is getting evaluated by neurology, once neurology evaluation is done, plan for an upper endoscopy inpatient (timing to be decided based on Eliquis washout and other testing-no urgency as patient is hemodynamically stable) but she needs
outpatient GI follow-up.
She is a smoker, reinforced smoking cessation
Also strongly reinforced avoiding Excedrin and NSAIDs.
Agree with celiac panel
Will follow
Original Note:
Consultation
-
Date/Time Consultation Requested: 06/30/2023 @ 02:08
Date/Time Consultation Performed: 06/30/2023 @ 09:30
Requesting Provider: Dr. Estevez
Performing Provider: KOURTNEY Cruz; Dr. Carson
Reason for Consultation: Anemia, Heme pos stool
Medical History
Chief Complaint / HPI
Chief Complaint: weakness, swelling, pain
History of Present Illness:
The patient is a 62-year-old female with a past medical history significant for hypertension, paroxysmal atrial fibrillation on Eliquis, CVA 2021, history of benign bladder mass (management at [facility]), anxiety, depression, history of ruptured
gallbladder with prolonged hospitalization and open laparoscopy, history of perforated gastric ulcer secondary to NSAIDs with patching ~2018, history of colon polyps, who presented to the emergency room with a multitude of complaints including
weakness, extremity swelling, and neck pain. We are being asked to evaluate for anemia and heme positive stool. The patient reports she has not been feeling well over the past several weeks. She notes pain in her neck that felt as though she had
a pinched nerve. She also admits to swelling in her hands and feet primarily on the left side, with an unsteady gait, and vertigo type symptoms. She notes that due to her pain she has been taking Aleve regularly. She also notes chronic headaches
in which she takes Excedrin daily. She denies any overt signs of bleeding such as melena, hematochezia, or hematemesis. She does take Eliquis for atrial fibrillation which was diagnosed last August. She notes a history of prolonged hospitalization
for a ruptured gallbladder which required open surgery about 1 year ago in [place]. She reports she had recently moved from there and had been getting GI care there prior with Dr. Jeffrey Ellis. She reports that she takes pantoprazole twice daily
for history of ruptured gastric ulcer in 2019 which required patching per patient. She currently denies any abdominal pain or heartburn symptoms. She does note she did have some nausea with vomiting of bilious emesis yesterday but no recurrent
symptoms. She reports her appetite has been good and she has gained about 12 pounds as of recent. She otherwise denies any dysphagia, odynophagia, constipation, diarrhea, chest pain, or loss of appetite. She does admit to some shortness of breath
as well with associated dizziness but denies at rest. She had her last colonoscopy she believes approximately 3 years ago in which she had polyps removed. Her last dose of Eliquis was yesterday around 6 AM. She does note a history of anemia
approximately 1 year ago in [place] but workup is unclear. She denies prior history of GI bleed. She also notes findings of a fatty bladder tumor which was managed at [facility]. Upon review of records, she had been seen in the ER
on 06/27 for similar symptoms with weakness and ataxia. She had also been found to be profoundly bradycardic in the 30s and was advised to stop taking her beta-yuliya. She did ultimately sign out AMA at that time although had been recommended for
admission. Routine labs in the ER showed hgb 8.0, MCV 74.4, plt 198,000, Na 134, K 4.0, iron saturation 8%, serum iron 37, troponin negative x1, ProBNP 1590, with normal LFT's. CXR done showing mild vascular congestion. She was placed on ASA 81 mg,
eliquis placed on hold, and admitted for further evaluation by neurology and GI.
Past Medical History
Past Medical History: Arrhythmias (Atrial fibrillation on Eliquis), CVA, GERD (History of perforated gastric ulcer in 2019 secondary to NSAIDs), HTN, Psychiatric (Anxiety/depression) and Other (Benign bladder mass, history of colon polyps, history
of perforated gallbladder)
Past Surgical History: Cholecystectomy (Perforated gallbladder with open cholecystectomy 2022), Orthopedic (Back surgery x 2, bladder tumor resection (fatty tumor as per patient)) and Other (AAA repair)
Social History
Tobacco: Smoker (1 pack/day)
Alcohol: Occasional (1-2 drinks weekly)
Drug: None
Personal:
Living: With Family
Family History
Family History: Reviewed & Not Pertinent
Allergies / Home Medications
Allergy/AdvReac Type Severity Reaction Status Date / Time
Sulfa (Sulfonamide Allergy Unknown Verified 06/29/23 22:23
Antibiotics)
Medication Instructions Recorded
apixaban 5 mg tablet (Eliquis) 5 mg PO BID 06/30/23
xsmxnjh-nezcnxkpgvdsk-deymdjav 250 1 tab PO Q6H PRN Pain 06/30/23
mg-250 mg-65 mg tablet (Excedrin
Extra Strength)
citalopram 20 mg tablet (Celexa) 20 mg PO DAILY 06/30/23
metoprolol tartrate 37.5 mg tablet 37.5 mg PO BID 06/30/23
Review of Systems
-
History Source: Patient
Constitutional: Reports No Symptoms
EENT: Reports No Symptoms
Respiratory: Reports Trouble Breathing
Cardiac: Reports No Symptoms
Abdomen/GI: Reports Nausea and Vomiting
: Reports No Symptoms
Musculoskeletal: Reports Other (Neck pain)
Skin: Reports No Symptoms
Neurological: Reports Dizzy and Weakness
Endocrine: Reports No Symptoms
Vital Signs
Temp Pulse Resp BP Pulse Ox
97.8 F 83 18 143/60 98
06/30/23 07:00 06/30/23 07:00 06/30/23 07:00 06/30/23 07:00 06/30/23 07:00
Physical Exam
Exam
General: Well Nourished, Pain and Other (Anxious, tearful)
HEENT: Normocephalic, Anicteric and Atraumatic
Respiratory: Clear
Cardiac: S1/S2 and Irregular Rhythm
Breast: Deferred by me
GI: Soft, Non Tender, Non Distended and Normal Bowel Sounds
Rectal: Deferred by Provider and Other (Brown heme positive per ER)
Musculoskeletal: No Edema
Skin: Warm and Dry
Neuro: Awake, Alert and Oriented
Psych: Calm
Results
WBC 4.9 10^3/uL (4.8-10.8) 06/30/23 02:23
Hgb 8.6 g/dL (12.0-16.0) L 06/30/23 02:23
Hct 26.4 % (37.0-47.0) L 06/30/23 02:23
MCV 75.0 fL (81.0-99.0) L 06/30/23 02:23
Plt Count 215 10^3/uL (130-400) 06/30/23 02:23
Absolute Neuts (auto) 3.0 10^3/uL (1.4-6.5) 06/29/23 22:59
Sodium 137 mmol/L (135-145) 06/30/23 02:23
Potassium 4.6 mmol/L (3.5-5.1) 06/30/23 02:23
Chloride 104 mmol/L (98-107) 06/30/23 02:23
Carbon Dioxide 33 mmol/L (22-30) H 06/30/23 02:23
BUN 18 mg/dl (7-17) H 06/30/23 02:23
Creatinine 0.7 mg/dL (0.6-1.0) 06/30/23 02:23
Calcium 9.3 mg/dl (8.4-10.2) 06/30/23 02:23
Total Bilirubin 0.7 mg/dl (0.2-1.3) 06/29/23 22:59
AST 33 U/L (14-36) 06/29/23 22:59
ALT 12 U/L (0-35) 06/29/23 22:59
Alkaline Phosphatase 102 U/L (38-126) 06/29/23 22:59
Diagnostic Image Results:
06/30/2023 CXR: �Mild central pulmonary vascular congestion. Otherwise clear lungs.
Prior GI Procedures:
EGD: ~ 3 years ago per pt in [place], had 'perforated ulcer'
Colonoscopy: ~3 years ago in [place], hx polyps per pt
Assessment / Plan
-
The patient is a 62-year-old female with a past medical history significant for hypertension, paroxysmal atrial fibrillation on Eliquis, CVA 2021, history of benign bladder mass (management at [place]), anxiety, depression, history of ruptured
gallbladder with prolonged hospitalization and open laparoscopy, history of perforated gastric ulcer secondary to NSAIDs with patching ~2019, history of colon polyps, who presented to the emergency room with a multitude of complaints including
weakness, extremity swelling, and neck pain. We are being asked to evaluate for anemia and heme positive stool. Records indicate she was seen 3 days ago in the ER for weakness, neck pain, and extremity numbness and had declined work-up/admission at
that time. She presented again with recurrent symptoms. Found to be anemic with a hgb 8 and heme + brown stool. Reported hx of perforated gastric ulcer in 2019 requiring patching (records not available). With daily NSAID use. +SANTANA on labs with low
MCV and iron saturation. No complaints of pain or obvious signs of bleeding currently. Last EGD/colonoscopy ~3 years ago per pt. She is also on chronic AC with Eliquis for afib which has been held.
Problem list:
-microcytic anemia, brown heme + stool
-hx perforated ulcer with daily NSAID use
-prior CVA
-bradycardia
-ataxia, weakness
-neck pain
-elevated BUN
-Chronic AC on Eliquis for Afib
Other pertinent medical hx:
-hx ruptured GB with open CCY/sepsis per pt 2022
-hx colon polyps
-fatty bladder tumor with resection per pt at [facility]
-anxiety/depression
Recommendations:
-Etiology of anemia possibly secondary to slow GI loss with heme + brown stool/hx perf ulcer with daily NSAID use v underlying hematologic disorder v other.
--No concern for active/brisk bleeding but with interval hx as above will need EGD. Will need to review with neurology and medicine for clearance/appropriateness with acute neuro symptoms. Timing to be determined by Dr. Carson.
-Will request records/procedure reports from the pt's former GI doctor in [place] Dr. Jeffrey Ellis.
-Continue to hold Eliquis, OK for aspirin
-Advised she will need to avoid NSAID's going forward and discuss with PCP alternatives for her headaches
-Keep NPO for now
-PPI BID
-Check celiac panel
-Neurology evaluation in progress. MRI pending this am
-Will follow
-
-
Thank you for consultation and allowing me to participate in the patient's care. Please call the sr. operations manager GI physician during the after hours with any questions or concerns.
--- NOTE | 2023-06-30 13:36 | CON.CAR ---
Addendum entered and electronically signed by Mario Mcclendon MD 06/30/23 16:00:
62-year-old woman with paroxysmal atrial fibrillation and prior stroke who presented to our office on June 27, was sent directly to the emergency department prior to consultation related to reports of left-sided weakness was bradycardic in the
emergency department but signed out AMA, stating she is taking increasing doses of metoprolol. She returned to the emergency department on June 29, found to have hemoglobin of 8 with sinus bradycardia and proBNP 1590, troponin 0.15. Mild
vascular congestion on chest x-ray, no evidence of stroke on MRI, unable to lie still for MRI of neck
PMH: Paroxysmal atrial fibrillation, history of facial droop/aphasia March 2022, hypertension, hyperlipidemia, migraines, tobacco abuse, anxiety, depression,
PSH abdominal aortic stent graft 2018, gastric sleeve, lumbar surgery, cholecystectomy, bladder tumor resection, herniorrhaphy
SH: Current smoker, daily alcohol
FH: Noncontributory
Allergies sulfa
Outpatient meds: Apixaban 5 twice daily, Excedrin extra strength, citalopram 20 mg a day, metoprolol tartrate 37.5 twice daily
ROS: Negative except as above
143/80, pulse 50, respirations 18, saturation 97%
Appears to be in distress with him pain, neck pain, neck exam notable for limited mobility, lungs relatively clear, cardiac irregular rate and rhythm, no obvious murmurs, abdomen benign, extremities without clubbing cyanosis or edema, distal pulses
palpable,
Hemoglobin 8.6 MCV 75, BUN/creatinine 18 and 0.7, potassium is 4.6, saturation 8%, troponin 0.015, proBNP 1590, LDL 61, HDL 60, TSH 0.57,
ECG atrial flutter/tachycardia with variable block, sinus bradycardia with blocked PACs, bradycardia dedicated PACs and compensatory pauses
Impression:
Presented 06/29/2023 with progressively worsening weakness and generalized pain in back, neck and arm
Anemia with heme positive stool
Sick sinus syndrome/PAF
Paroxysmal Atrial Fibrillation
Prior CVA (facial droop and aphasia) 03/2022
Hypertension
Hyperlipidemia
Migraine headaches
Ongoing tobacco abuse
[facility]
Anxiety / Depression
Cholecystectomy open repair secondary to rupture and sepsis
AAA repair w/ 2017
Status post laparoscopic sleeve gastrectomy
Lumbar disc surgery [facility]
Iron deficiency anemia
Echo 11/04/2018:�EF 60%, no significant valvular disease
Lexiscan nuclear stress test 06/10/2022:�EF 59%, no significant ischemia or scarring
Lexiscan Cardiolite stress test 06/24/2020:�EF 73%, no significant ischemia or scarring
Plan:
She presents with longstanding paroxysmal atrial fibrillation/sick sinus syndrome. 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
Currently, she is in sinus rhythm with ectopics.
Control of her paroxysmal atrial fibrillation will be difficult with medications alone. 2 strategy is likely to succeed would be eventual pacemaker implantation to permit adequate medical therapy versus an ablative strategy.
Unfortunately, EP evaluation was not performed due to urgent nature of upper extremity weakness, currently being evaluated by hospitalist and neurology.
Will hold metoprolol at present and use as needed IV metoprolol in the event of recurrent atrial fibrillation.
Will discuss best strategy with electrophysiology.
Eliquis on hold. Utility of aspirin at present is limited and so I will discontinue in the setting of anemia.. Will consider initiation of heparin for short-term control, but given anemia would be desirable to withhold.
Would be okay to proceed with endoscopic evaluation for anemia if needed.
We will continue to follow.
Original Note:
Consultation
Consultation Request
Date/Time Consultation Requested: 06/30/2023
Date/Time Consultation Performed: 06/30/2023
Requesting Provider: Dr. Bentley
Performing Provider: Samantha Hall PA-C for Dr. Mario Mcclendon
Reason for Consultation: Bradycardia, paroxysmal atrial fibrillation
Medical History
-
History of Present Illness:
Patient is a 62-year-old female with past medical history significant for paroxysmal atrial fibrillation on chronic anticoagulation with Eliquis, hypertension, hyperlipidemia, stroke, AAA repair, migraine headache, spinal stenosis, bladder
resection, tobacco abuse. She was seen as new patient in cardiology office 06/27/2023 to establish care and complained of progressively worsening left upper and lower extremity weakness and gait instability. She was referred to the emergency
department. She was found to be bradycardic with heart rates as low as 30 bpm but admitted to increasing metoprolol on her own secondary to palpitations. She was also noted to be anemic. Patient signed out AMA. Following discharge she reports she
did stop taking metoprolol. She presented back to emergency department 06/29/2023 with progressively worsening weakness and pain all over. Patient admits to drinking alcohol on a regular basis and using Excedrin up to 4 times daily for aches and
pains. Hemoglobin noted to be 8.0 with heme positive stool. EKG demonstrated sinus bradycardia with PACs. Troponin 0.015. proBNP 1590. Chest x-ray with mild central pulmonary vascular congestion. Head CT was negative for acute abnormality on
06/27/2023. MRI of brain 06/30/2022 without acute evidence of stroke.
At the time of this evaluation patient lying in bed complaining of neck pain. She appears anxious at times. She c/o intermittent palpitations that come and go. Notes elevated heart rate when she gets anxious. Tells me she takes Toprol 37.5 mg BID
but at times will take an extra 25-50 mg daily for palpitations. She smokes 1 pack daily and drinks 3-4 mudslides daily. Denies chest pain but will feel winded and dizzy with high heart rates
PMH:
Paroxysmal Atrial Fibrillation
Chronic anticoagulation on Eliquis
Prior CVA (facial droop and aphasia) 03/2022
Hypertension
Hyperlipidemia
Migraine headaches
Anxiety
Ongoing tobacco abuse
Bladder Mass with resection
Anxiety / Depression
Cholecystectomy open repair secondary to rupture and sepsis
AAA repair w/ graft 2017
Status post laparoscopic sleeve gastrectomy
Lumbar disc surgery [facility]
Past Medical History
Past Medical History: Other (See HPI)
Past Surgical History: Cholecystectomy (Open repair rupture with sepsis 2019), Orthopedic (Lumbar disc surgery [facility]), Urological (Bladder mass resection) and Other (Hernia repair x 3, AAA repair w/ graft [place] 2018, Status post laparoscopic
sleeve gastrectomy, )
Social History
Tobacco: Smoker
Alcohol: Daily (3-4 mudslides )
Drug: None
Personal: Single
Employment: Retired (nurse)
Family History
Family History: Other (Father had diabetes, hypertension, heart disease, hyperlipidemia. Mother diabetes hypertension, heart disease, cancer. Brother [place] and diabetes)
Allergies / Home Medications
Allergy/AdvReac Type Severity Reaction Status Date / Time
Sulfa (Sulfonamide Allergy Unknown Verified 06/29/23 22:23
Antibiotics)
Medication Instructions Recorded Confirmed Type
apixaban 5 mg tablet (Eliquis) 5 mg PO BID 06/30/23 06/30/23 History
fvhflmw-nduzrcauhmeum-zptzgzge 250 1 tab PO Q6H PRN Pain 06/30/23 06/30/23 History
mg-250 mg-65 mg tablet (Excedrin
Extra Strength)
citalopram 20 mg tablet (Celexa) 20 mg PO DAILY 06/30/23 06/30/23 History
metoprolol tartrate 37.5 mg tablet 37.5 mg PO BID 06/30/23 06/30/23 History
Review of Systems
-
History Source: Patient
All other systems: Negative unless noted
Physical Exam
Vital Signs
Temp Pulse Resp BP Pulse Ox
98.4 F 51 18 143/80 97
06/30/23 11:00 06/30/23 11:00 06/30/23 11:00 06/30/23 11:00 06/30/23 11:00
GEN: Appears anxious and uncomfortable, awake, Ox3
HEENT: supple, anicteric, mmm
LUNGS: CTA, no wheezes/rales
CV: Irreg irreg, S1/S2, no murmur, rub or gallop
ABD: soft, BS+, NT/ND
EXT: No edema, clubbing or cyanosis
NEURO: Gross non-focal
SKIN: Areas of excoriation on arms but no rash, warm, dry, pink
Lab Results
06/30/23 02:23
06/30/23 02:23
Troponin I 0.015 ng/ml 06/29/23 22:59
Qgx-G-Zvmwwcfoyky Pept 1590 pg/ml 06/29/23 22:59
Impression / Plan
-
PCP:Dr. Reba Maria
Integration Lead:Previously seen by Dr. Montserrat Castro ([place]), Seen as EP consult 06/27/2023 as new patient by Dr. Anil Haskins
Impression:
Presented 06/29/2023 with progressively worsening weakness and generalized pain in back, neck and arm
Acute anemia with heme positive stool
Left-sided weakness
Neck pain
Bradycardia
Palpitations with runs of paroxysmal atrial fibrillation with rapid ventricular response
Suspicion for sick sinus syndrome
Paroxysmal Atrial Fibrillation
Chronic anticoagulation on Eliquis
Prior CVA (facial droop and aphasia) 03/2022
Hypertension
Hyperlipidemia
Migraine headaches
Anxiety
Ongoing tobacco abuse
Bladder Mass with resection
Anxiety / Depression
Cholecystectomy open repair secondary to rupture and sepsis
AAA repair w/ graft [place] 2017
Status post laparoscopic sleeve gastrectomy
Lumbar disc surgery [facility]
Echo 11/04/2018: EF 60%, no significant valvular disease
Lexiscan nuclear stress test 06/10/2022: EF 59%, no significant ischemia or scarring
Lexiscan Cardiolite stress test 06/24/2020: EF 73%, no significant ischemia or scarring
Holter monitor October 2022: Paroxysmal atrial fibrillation
Plan:
Patient is a 62-year-old female with past medical history significant for paroxysmal atrial fibrillation on chronic anticoagulation with Eliquis, hypertension, hyperlipidemia, stroke, AAA repair, migraine headache, spinal stenosis, bladder
resection, tobacco abuse. She was seen as new patient in cardiology office 06/27/2023 to establish care and complained of progressively worsening left upper and lower extremity weakness and gait instability. She was referred to the emergency
department. She was found to be bradycardic with heart rates as low as 30 bpm but admitted to increasing metoprolol on her own secondary to palpitations. She was also noted to be anemic. Patient signed out AMA. Following discharge she reports she
did stop taking metoprolol. She presented back to emergency department 06/29/2023 with progressively worsening weakness and pain all over. Patient admits to drinking alcohol on a regular basis and using Excedrin up to 4 times daily for aches and
pains. Hemoglobin noted to be 8.0 with heme positive stool. EKG demonstrated sinus bradycardia with PACs. Troponin 0.015. proBNP 1590. Chest x-ray with mild central pulmonary vascular congestion. Head CT was negative for acute abnormality on
06/27/2023. MRI of brain 06/30/2022 without acute evidence of stroke.
At the time of this evaluation patient lying in bed complaining of neck pain. She appears anxious at times. She c/o intermittent palpitations that come and go. Notes elevated heart rate when she gets anxious. Tells me she takes Toprol 37.5 mg BID
but at times will take an extra 25-50 mg daily for palpitations. She smokes 1 pack daily and drinks 3-4 mudslides daily. Denies chest pain but will feel winded and dizzy with high heart rates
-Presented 06/29/2023 with progressively worsening weakness, generalized pain in back, neck, arm and palpitations
Paroxysmal atrial fibrillation
-Initially patient presented in sinus bradycardia with PACs Toprol held . However upon review of telemetry it is peers patient is having episode of paroxysmal atrial fibrillation with rapid ventricular response.
-Evidence of sick sinus syndrome. Toprol remains on hold. Pt reports she last took . Use IV Lopressor prn for tachycardia
-Continue to monitor and trend on telemetry. May benefit from antiarrhythmic drug and or PVI ablation
-Last echo in outpatient records 2018. Will repeat
-proBNP 1590, CXR with suggestion of mild central pulmonary vascular congestion but pt does not appear volume overloaded on exam, lungs clear and on RA. Would hold on diuresis at this time
-Maintained on Eliquis as outpatient. This is currently on hold secondary to acute anemia with heme positive stool. Patient currently on aspirin 81 mg
-Lipids 06/30/2023 TC 139, HDL 60, LDL 61, triglycerides 93. LDL at goal. Continue rosuvastatin
Hypertension
-On metoprolol as outpt. Currently on hold secondary to bradycardia.
-Blood pressure somewhat labile. Would continue to monitor and trend. Can utilize hydralazine as needed
Acute anemia with heme positive stool in setting of daily use of Excedrin and NSAIDs
-Hemoglobin 8.6
-Eliquis currently on hold
-Plan is for Eliquis washout and GI evaluation with EGD/possible colonoscopy
-Continue PPI IV twice daily, iron supplementation
-GI following
Generalized weakness with prior history of stroke.
-Head CT and MRI of brain unremarkable.
-MRI of cervical spine attempted by pt unable to lye still. Symptoms of weakness and neck pain concerning. Consider another attempt at MRI or CT with sedation/anxiety medication but will defer to primary service/neurology
-B12 and iron being supplemented
Data Reviewed
-
EKG: Report Reviewed by me, Discussed with Physician, Discussed with Nurse and Discussed with Patient
Radiology: Report Reviewed by me, Discussed with Physician, Discussed with Nurse and Discussed with Patient
MRI: Report Reviewed by me, Discussed with Physician, Discussed with Nurse and Discussed with Patient
Labs: Labs Reviewed by me, Discussed with Physician, Discussed with Nurse and Discussed with Patient
Old Records: Reviewed
[2023-06-30] MEDS: FERRLECIT 110 MG IV (14:27)
[2023-06-30] MEDS: VITAMIN B-12 1000 MCG PO (14:28)
--- NOTE | 2023-06-30 14:40 | W.PN.HOSP.TC ---
Today's Communication/Plan
-
SEE plan
Assessment / Plan
Assessment / Plan
Impression:
Presentation with generalized fatigue,. Of anxiety and palpitations.
Reported left-sided weakness.
Cervical pain.
Bradycardia.
Alcohol use disorder with concern for alcohol withdrawal
Chronic anemia slowly trending down hemoglobin and heme positive stool
Conditions prior to admission
Paroxysmal atrial fibrillation
Anticoagulation with Eliquis
Prior history of CVA (fascial droop and aphasia March 2022)
Peptic ulcer disease with history of perforation
Essential hypertension
Hyperlipidemia
Anemia of chronic disease.
Anxiety.
Ongoing tobacco use disorder
Ongoing alcohol use disorder.
History of bladder mass with resection.
Status postcholecystectomy.
Status post AAA repair with graft in 2017.
Status post bariatric surgery sleeve gastrectomy.
History of spinal surgery.
Plan:
Presentation with severe anxiety.
Reported left upper extremity weakness
Prior history of CVA.
Current neurologic examination with no focal findings on my attempt.
CT scan of the head with no acute intracranial process
MRI of the brain with no evidence of acute CVA.
Patient reports prior CVA, although with no evidence of old infarct on imaging.
Unable to lay still for MRI of the C-spine.
Monitor neurologic status closely.
Hold Eliquis for possible GI workup
Neurology input appreciated
Paroxysmal atrial fibrillation.
Telemetry/ECG noted with sinus bradycardia with heart rate down to 30
TSH within normal limits
Patient reports taking extra dose of metoprolol with her palpitations and anxiety.
Off beta-yuliya since admission.
Cardiology consultation
Consider EP workup.
Hold Eliquis for GI evaluation given worsening anemia.
Essential hypertension.
Most recent echocardiogram 11/07 with LVEF of 60% with no significant valvular abnormalities per
Consider update echocardiogram.
Worsening anemia with hemoglobin trending down to 8.6 (9.8 on 01/11, 14.3 on 10/10)
Microcytosis with iron deficiency
No clinical evidence of brisk hemorrhage
Heme positive on rectal exam
Patient reports daily intake of NSAIDs. On anticoagulation
She has a history of PUD with perforation
Discussed with gastroenterology
Hold Eliquis.
Continue IV PPI.
Consider endoscopic evaluation while inpatient pending cardiac clearance.
Alcohol use disorder
Anxiety/depression
Patient reports daily alcohol up to 8 drinks.
Alcohol level undetectable.
Urine drug screen negative.
Monitor closely
Continue MSAS protocol
DVT Prophylaxis:� US pending to rule out LLE and LUE clots given edema.� GI bleeding possibility as noted above.� Avoid mechanical or pharmacologic prophylaxis for now.� SCDs can be started if US are negative.
Code Status:� Full
Anticipated Discharge: > 48 hours
Subjective/Interval History
-
Date of Service: June 30, 2023
Objective Data
-
Labs:
Laboratory Results
06/30/23
02:23
WBC 4.9
Hgb 8.6 L
Hct 26.4 L
Plt Count 215
Sodium 137
Potassium 4.6
Chloride 104
Carbon Dioxide 33 H
BUN 18 H
Creatinine 0.7
Glucose 102 H
Calcium 9.3
Vital Signs:
Vital Signs
Temp Pulse Resp BP Pulse Ox
98.4 F 51 18 143/80 97
06/30/23 11:00 06/30/23 11:00 06/30/23 11:00 06/30/23 11:00 06/30/23 11:00
I&O
06/29/23 06/30/23 07/01/23
06:59 06:59 06:59
Output Total 100 / 100
Balance -100 / -100
Physical Exam
-
General: Well Developed and No Apparent Distress
HEENT: Normocephalic, Atraumatic and Moist Mucous Membranes
Respiratory: Clear to Auscultation
Cardiac: Regular Rhythm and S1/S2; Negative Murmur, Rub or Gallop
GI: Soft, Nontender, Nondistended and Normal Bowel Sounds; Negative Organomegaly
Rectal: Deferred by Provider
Musculoskeletal: No Clubbing, No Cyanosis and No Edema
Skin: Negative Rash
Neuro: Awake, Alert, Oriented, AO x 3 and Nonfocal/Grossly Intact
--- NOTE | 2023-06-30 15:20 | CM ---
CM following re: d/c planning
Chart reviewed
CM met with the patient at bedside; IA completed
Pt is here as observation, WEIR letter reviewed and copy provided
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
Pt has no recent SNF hx, is current with [facility] and has a spc for use as needed
Pt has prescription coverage and rx's are filled at [facility] on [address]
Pt PCP-not known--patient states she's followed by Dr. Maria & Dr. Anil Haskins
Per PT/OT assessment post d/c recommendation is for acute rehab
CM will continue to monitor patient progress and assist with needs at d/c as indicated
PLAN; CM following for needs
[2023-06-30] MEDS: CRESTOR 10 MG PO (16:42)
[2023-06-30] MEDS: FEOSOL 325 MG PO (20:32)
[2023-06-30] MEDS: APRESOLINE 5 MG IV (20:32)
[2023-07-01 03:06] VITALS: BP 171/83
[2023-07-01 06:18] LABS: % Basophils 0.7 % (0-2); % Eosinophils 4.1 % (0-6); % Immature Granulocytes 0.5 % (0-0.5); % Monocytes 13.6 % (1.7-9.3); % Neutrophils 62.1 % (42.2-75.2); Absolute Eosinophils 0.2 10^3/uL (0-0.7); Absolute Lymphocytes 0.8 10^3/uL (1.2-3.4); Absolute Monocytes 0.6 10^3/uL (0.1-0.6); Absolute Neutrophils 2.8 10^3/uL (1.4-6.5); Hematocrit 29.1 % (37.0-47.0); Hemoglobin 9.6 g/dL (12.0-16.0); Mean Corpuscular Volume 72.8 fL (81.0-99.0); Mean Platelet Volume 9.5 fL (7.4-10.4); Nucleated Red Blood Cells % 0 %; Platelet Count 189 10^3/uL (130-400); Red Cell Dist. Width 17.3 % (11.5-14.5); White Blood Cell Count 4.4 10^3/uL (4.8-10.8)
[2023-07-01 06:49] LABS: Blood Urea Nitrogen 12 mg/dl (7-17); Calcium 8.7 mg/dl (8.4-10.2); Carbon Dioxide 28 mmol/L (22-30); Chloride 107 mmol/L (98-107); Estimated Creatinine Clearance 74 ml/min; Glucose 80 mg/dl (70-99); Potassium 3.5 mmol/L (3.5-5.1); Sodium 136 mmol/L (135-145); eGFR > 60.00
[2023-07-01 07:00] VITALS: BP 144/77; BP 155/87; BP 162/75; PULSE 87; PULSE 89; PULSE 90
[2023-07-01] MEDS: ATIVAN 1 MG PO ×2 (09:30→17:04)
[2023-07-01] MEDS: THIAMINE INJECTION 200 MG IV ×2 (09:32→20:57)
[2023-07-01] MEDS: NSS (PRESERVATIVE FREE) 10 ML IV ×2 (09:34→21:00)
[2023-07-01] MEDS: PROTONIX IV 40 MG IV ×2 (09:34→21:01)
[2023-07-01] MEDS: COZAAR 25 MG PO ×2 (09:36→20:57)
[2023-07-01] MEDS: FOLVITE 1 MG PO (09:36)
[2023-07-01] MEDS: VITAMIN B-12 1000 MCG PO (09:36)
[2023-07-01 11:00] VITALS: BP 162/92
--- NOTE | 2023-07-01 11:43 | W.PN.CARDCBS ---
Today's Communication / Plan
-
Sick sinus syndrome/PAF but overall relatively stable cardiac status
Continue to withhold metoprolol, with as needed IV metoprolol for rapid heart rates
Patient could tolerate sedation, etc. if needed from cardiac standpoint
Continue to hold Eliquis
Can undergo GI evaluation if needed
Impression / Plan
-
PCP:Dr. Reba Maria
Senior Storage Administrator:Previously seen by Dr. Montserrat Castro ([place]), Seen as EP consult 06/27/2023 as new patient by Dr. Anil Haskins
Impression:
Sick sinus syndrome, paroxysmal atrial fibrillation/flutter with bradycardia
Anemia with heme positive stool
Chronic anticoagulation on Eliquis
Prior CVA (facial droop and aphasia) 03/2022
Hypertension
Hyperlipidemia
Migraine
Anxiety
Ongoing tobacco abuse
TURBT
Anxiety / Depression
Cholecystectomy open repair secondary to rupture and sepsis
AAA repair w/ graft [facility] 2017
Status post laparoscopic sleeve gastrectomy
Lumbar disc surgery [facility]
Echo 11/04/2018: EF 60%, no significant valvular disease
Lexiscan nuclear stress test 06/10/2022: EF 59%, no significant ischemia or scarring
Lexiscan Cardiolite stress test 06/24/2020: EF 73%, no significant ischemia or scarring
Holter monitor October 2022: Paroxysmal atrial fibrillation
Echo 06/30/2023: EF 66%, mild LVH, dilated left atrium, mild to moderate MR, trace TR, normal pulmonary artery pressure
Plan:
She still has paroxysmal atrial fibrillation but rate is not that rapid, even without metoprolol. She also has periods of bradycardia. Heart rate control is suboptimal but adequate at present.
Eliquis is currently on hold in the event that neurosurgical issues arise. It is okay to continue to hold Eliquis.
Her echocardiogram is satisfactory.
Continue to withhold metoprolol. Continue IV as needed metoprolol as needed for persistently elevated heart rates.
Blood pressure is elevated, will increase losartan to 25 mg twice daily
Hemoglobin is stable.
Despite sick sinus syndrome/paroxysmal atrial fibrillation, patient could undergo endoscopic evaluation if needed.
Will continue to observe on telemetry.
Management of C-spine/concerns regarding weakness per primary team/neurology.
Clinical summary: Patient is a 62-year-old female with past medical history significant for paroxysmal atrial fibrillation on chronic anticoagulation with Eliquis, hypertension, hyperlipidemia, stroke, AAA repair, migraine headache, spinal stenosis,
bladder resection, tobacco abuse. She was seen as new patient in cardiology office 06/27/2023 to establish care and complained of progressively worsening left upper and lower extremity weakness and gait instability. She was referred to the emergency
department. She was found to be bradycardic with heart rates as low as 30 bpm but admitted to increasing metoprolol on her own secondary to palpitations. She was also noted to be anemic. Patient signed out AMA. Following discharge she reports she
did stop taking metoprolol. She presented back to emergency department 06/29/2023 with progressively worsening weakness and pain all over. Patient admits to drinking alcohol on a regular basis and using Excedrin up to 4 times daily for aches and
pains. Hemoglobin noted to be 8.0 with heme positive stool. EKG demonstrated sinus bradycardia with PACs. Troponin 0.015. proBNP 1590. Chest x-ray with mild central pulmonary vascular congestion. Head CT was negative for acute abnormality on
06/27/2023. MRI of brain 06/30/2022 without acute evidence of stroke.
At the time of this evaluation patient lying in bed complaining of neck pain. She appears anxious at times. She c/o intermittent palpitations that come and go. Notes elevated heart rate when she gets anxious. Tells me she takes Toprol 37.5 mg BID
but at times will take an extra 25-50 mg daily for palpitations. She smokes 1 pack daily and drinks 3-4 mudslides daily. Denies chest pain but will feel winded and dizzy with high heart rates
Progress Note - Senior Storage Administrator
Subjective
Date of Service: July 01, 2023:
Patient complaining of pain from neck, extremity symptoms.
Allergies: Sulfa
Outpatient meds: Apixaban 5 twice daily, Excedrin, citalopram, metoprolol tartrate 37.5 twice daily
Current meds losartan 25 mg a day: Thiamine, Protonix, B12, Crestor 10 mg daily, folate
PMH/PSH/FH/SH: Reviewed
ROS: Negative except as above
Cervical spine MRI: Nondiagnostic, needs to be repeated under full sedation
White count 4, hemoglobin 9.6, BUN and creatinine 12 and 0.7, potassium 3.5
Telemetry: Heart rate in 30s between 4 AM and 6 AM, pauses but none greater than 2 seconds, episodes of atrial fibrillation but rate relatively controlled
Objective
Labs:
07/01/23 05:39
07/01/23 05:39
Labs
Hgb 9.6 g/dL (12.0-16.0) L 07/01/23 05:39
Hct 29.1 % (37.0-47.0) L 07/01/23 05:39
Plt Count 189 10^3/uL (130-400) 07/01/23 05:39
Sodium 136 mmol/L (135-145) 07/01/23 05:39
Potassium 3.5 mmol/L (3.5-5.1) 07/01/23 05:39
BUN 12 mg/dl (7-17) 07/01/23 05:39
Creatinine 0.7 mg/dL (0.6-1.0) 07/01/23 05:39
Glucose 80 mg/dl (70-99) 07/01/23 05:39
Troponins
06/29/23
22:59
Troponin I 0.015
Vital Signs and I&O:
Vital Signs
Temp Pulse Resp BP Pulse Ox
37.0 C 97 18 162/92 98
07/01/23 11:00 07/01/23 11:00 07/01/23 11:00 07/01/23 11:00 07/01/23 11:00
Vital Signs
Temp Pulse Resp BP Pulse Ox
37.0 C 97 18 162/92 98
07/01/23 11:00 07/01/23 11:00 07/01/23 11:00 07/01/23 11:00 07/01/23 11:00
Intake & Output
06/29/23 06/30/23 07/01/23 07/02/23
07:59 07:59 07:59 07:59
Output Total 100 / 100
Balance -100 / -100
Physical Exam
Physical Exam
162/92, pulse 90s, lying on left side, stating she is uncomfortable, head neck exam unremarkable, lungs clear, cardiac exam with regular rate and rhythm but no obvious murmurs JVD okay, abdomen and extremities benign no significant edema
[2023-07-01] MEDS: ULTRAM 50 MG PO ×2 (12:09→21:00)
--- NOTE | 2023-07-01 13:01 | W.PN.NEURO.1 ---
Today's Communication / Plan
-
reviewed MRI Cspine--c/s neurosurgery
Neuro Assessment/Plan
Assessment
IMPRESSIONS/RECOMMENDATIONS:
Abrupt change in left arm and leg strength with MRI Cspine showing significant degenerative disk and joint disease in the cervical spine from C3 through T1; exam was limited by patient motion.
MRI brain showed no stroke/other structural abnormality as cause for symptoms.
Plan
MRI of brain: Mild atrophy. Minimal periventricular leukomalacia is present.�
Cspine results above--consult neurosurgery
Rehabilitation evaluations
DVT prophylaxis
Will follow as needed. Please call with further questions. Reviewed with Dr. Altman.
Subjective/Objective
Subjective Data
Date of Service: July 01, 2023
reports L sided weakness is unchanged, feels fatigued and complains of neck pain
Objective Data
Vital Signs
Temp Pulse Resp BP Pulse Ox
98.6 F 97 18 162/92 98
07/01/23 11:00 07/01/23 11:00 07/01/23 11:00 07/01/23 11:00 07/01/23 11:00
Lab Results
07/01/23 05:39
07/01/23 05:39
Sodium 136 mmol/L (135-145) 07/01/23 05:39
Potassium 3.5 mmol/L (3.5-5.1) 07/01/23 05:39
BUN 12 mg/dl (7-17) 07/01/23 05:39
Glucose 80 mg/dl (70-99) 07/01/23 05:39
Calcium 8.7 mg/dl (8.4-10.2) 07/01/23 05:39
Nfy-X-Slhxjchurhl Pept 1590 pg/ml 06/29/23 22:59
LDL Cholesterol, Calc 61 mg/dl 06/30/23 02:23
Vitamin B12 360 pg/ml (239-931) 06/30/23 02:23
Ur Buprenorphine Negative (Negative) 06/30/23 03:53
Patient Allergies
Sulfa (Sulfonamide Antibiotics) Allergy (Verified 06/29/23 22:23)
Unknown
Physical Exam
-
Mood & Affect: Minimally cooperative with exam, laying on L side with eyes closed
Attention Span & Concentration: Awake, Alert
Memory: Unremarkable
Tremor: Hand Tremor Absent and Head Tremor Absent
Speech: Quality Unremarkable and Quantity Unremarkable
Cranial Nerve II: Left Eye: Pupillary Reactivity Unremarkable, Pupillary Size Unremarkable and Visual Ferguson Intact
Cranial Nerve II: Right Eye: Pupillary Reactivity Unremarkable, Pupillary Size Unremarkable and Visual Ferguson Intact
Cranial Nerves III, IV, : Extraocular Movement: Extraocular Movement Full in all Directions
Cranial Nerve V: Facial Sensation: Facial Sensation Unremarkable to Cold
Cranial Nerve VII: Facial Symmetry: Normal Facial Symmetry
Cranial Nerve VIII: Hearing: Unremarkable Hearing to Normal Conversational Volume
Cranial Nerves IX, X: Palate Movement: Palate Elevation Symmetric
Cranial Nerve XI: Shoulder Shrug: Unremarkable
Cranial Nerve XII: Tongue Protusion: Midline
Muscle Strength: +drift in LUE and LLE
Deep Tendon Reflexes: 3+; 2+ in BUE
Touch Sensation: Unremarkable
Coordination: Wvpuzk-zosz-sojoaf Testing Unremarkable
Babinski Sign: toes mute
Gait & Station: deferred
Modified [place] Score (MRS)
-
MRS Score:
Data Reviewed
-
MRI Cervical Spine: Report Reviewed (Severely limited examination. There is significant degenerative disk and joint disease in the cervical spine from C3 through T1, however the patient was unable to cooperate and I cannot evaluate for myelopathy.
)
--- NOTE | 2023-07-01 13:04 | W.PN.GI.CBS2 ---
Today's Communication / Plan
-
Recommendations:
-Iron deficiency anemia, heme positive stool without any overt bleeding
Hemoglobin stable without any significant change, BUN normal
No current active bleeding
Continue PPI twice daily
Will arrange for outpatient upper endoscopy sooner than later
If she is in the hospital admitted on Monday07/03/2023 and if she is not on anticoagulation, will do it inpatient
Start low residue diet
Okay to anticoagulate, will monitor H&H closely
Reports history of chronic anemia as well with history of perforated gastric ulcer status postrepair in 2019 in [place].
Continues to take Excedrin/Advil daily for neck pain/headaches
Await records from her previous GI regarding EGD /colonoscopy that was done in 2022
She is a smoker, reinforced smoking cessation
Also strongly reinforced avoiding Excedrin and NSAIDs.
Await celiac panel
Will follow
Assessment / Plan
-
The patient is a 62-year-old female with a past medical history significant for hypertension, paroxysmal atrial fibrillation on Eliquis, CVA 2021, history of benign bladder mass (management at [facility]), anxiety, depression, history of ruptured
gallbladder with prolonged hospitalization and open laparoscopy, history of perforated gastric ulcer secondary to NSAIDs with patching ~2019, history of colon polyps, who presented to the emergency room with a multitude of complaints including
weakness, extremity swelling, and neck pain. We are being asked to evaluate for anemia and heme positive stool. Records indicate she was seen 3 days ago in the ER for weakness, neck pain, and extremity numbness and had declined work-up/admission at
that time. She presented again with recurrent symptoms. Found to be anemic with a hgb 8 and heme + brown stool. Reported hx of perforated gastric ulcer in 2019 requiring patching (records not available). With daily NSAID use. +SANTANA on labs with low
MCV and iron saturation. No complaints of pain or obvious signs of bleeding currently. Last EGD/colonoscopy ~3 years ago per pt. She is also on chronic AC with Eliquis for afib which has been held.
Problem list:
-microcytic anemia, brown heme + stool
-hx perforated ulcer with daily NSAID use
-prior CVA
-bradycardia
-ataxia, weakness
-neck pain
-elevated BUN
-Chronic AC on Eliquis for Afib
Other pertinent medical hx:
-hx ruptured GB with open CCY/sepsis per pt 2022
-hx colon polyps
-fatty bladder tumor with resection per pt at [facility]
-anxiety/depression
Recommendations:
-Iron deficiency anemia, heme positive stool without any overt bleeding
Hemoglobin stable without any significant change, BUN normal
No current active bleeding
Continue PPI twice daily
Will arrange for outpatient upper endoscopy sooner than later
If she is in the hospital admitted on Monday07/03/2023 and if she is not on anticoagulation, will do it inpatient
Start low residue diet
Okay to anticoagulate, will monitor H&H closely
Reports history of chronic anemia as well with history of perforated gastric ulcer status postrepair in 2019 in [place].
Continues to take Excedrin/Advil daily for neck pain/headaches
Await records from her previous GI regarding EGD /colonoscopy that was done in 2022
She is a smoker, reinforced smoking cessation
Also strongly reinforced avoiding Excedrin and NSAIDs.
Await celiac panel
Will follow
Subjective
Subjective
Date of Service: July 01, 2023
Patient reports having brown bowel movement today, no abdominal pain
Objective
Data Reviewed
Laboratory Data:
Laboratory Results
07/01/23 05:39
07/01/23 05:39
Laboratory Results
Total Bilirubin 0.7 mg/dl (0.2-1.3) 06/29/23 22:59
AST 33 U/L (14-36) 06/29/23 22:59
ALT 12 U/L (0-35) 06/29/23 22:59
Alkaline Phosphatase 102 U/L (38-126) 06/29/23 22:59
Vital Signs and I&O:
Vital Signs
Temp Pulse Resp BP Pulse Ox
98.6 F 97 18 162/92 98
07/01/23 11:00 07/01/23 11:00 07/01/23 11:00 07/01/23 11:00 07/01/23 11:00
I&O
06/30/23 07/01/23 07/02/23
06:59 06:59 06:59
Output Total 100 / 100
Balance -100 / -100
Physical Exam
Physical Exam
GI: Soft, Non Distended, Non Tender and Normal Bowel Sounds
[2023-07-01 15:00] VITALS: BP 158/68
--- NOTE | 2023-07-01 15:19 | PTCARENOTE ---
Found cigarette butt floating in patients ice tea on food tray. Security called and came to floor to speak with patient and instructed nursing staff to hold cigarettes. Patient label put on pack and placed in drawer @ nurses station to return @
discharge. Hospitalist made aware.
[2023-07-01] MEDS: TYLENOL 650 MG PO (16:34)
[2023-07-01] MEDS: CRESTOR 10 MG PO (17:04)
[2023-07-01] MEDS: NICODERM TRANSDERMAL 14 MG TRANSDERM (17:04)
--- NOTE | 2023-07-01 17:56 | W.PN.HOSP.TC ---
Today's Communication/Plan
-
Neurology is requesting neurosurg eval of cervical spine
Assessment / Plan
Assessment / Plan
Impression:
Presentation with generalized fatigue,. Of anxiety and palpitations.
Reported left-sided weakness.
Cervical pain.
Bradycardia.
Alcohol use disorder with concern for alcohol withdrawal
Chronic anemia slowly trending down hemoglobin and heme positive stool. Fe sat 8%, Ferritin 23.0
07/01 Hgb 9.6
Conditions prior to admission
Paroxysmal atrial fibrillation
Anticoagulation with Eliquis
Prior history of CVA (fascial droop and aphasia March 2022)
Peptic ulcer disease with history of perforation
Essential hypertension
Hyperlipidemia
Anemia of chronic disease.
Anxiety.
Ongoing tobacco use disorder
Ongoing alcohol use disorder.
History of bladder mass with resection.
Status postcholecystectomy.
Status post AAA repair with graft in 2017.
Status post bariatric surgery sleeve gastrectomy.
History of spinal surgery.
Plan:
Presentation with severe anxiety.
Reported left upper extremity weakness
Prior history of CVA.
Current neurologic examination with no focal findings on my attempt.
CT scan of the head with no acute intracranial process
MRI of the brain with no evidence of acute CVA.
Patient reports prior CVA, although with no evidence of old infarct on imaging.
Unable to lay still for MRI of the C-spine.
Monitor neurologic status closely.
Hold Eliquis for possible GI workup
Neurology input appreciated
discussed with Dr. Turner, she would like neurosurg input regarding cervical spine disease
MRI: There is significant degenerative disk and joint disease in the cervical spine from C3 through T1, however the patient was unable to cooperate and I cannot evaluate for myelopathy.
Paroxysmal atrial fibrillation.
Telemetry/ECG noted with sinus bradycardia with heart rate down to 30
TSH within normal limits
Patient reports taking extra dose of metoprolol with her palpitations and anxiety.
Off beta-yuliya since admission.
Cardiology consultation
Consider EP workup.
Hold Eliquis for GI evaluation given worsening anemia.
Essential hypertension.
Most recent echocardiogram 11/07 with LVEF of 60% with no significant valvular abnormalities per
Consider update echocardiogram.
Worsening anemia with hemoglobin trending down to 8.6 (9.8 on 01/11, 14.3 on 10/10)
Microcytosis with iron deficiency
No clinical evidence of brisk hemorrhage
Heme positive on rectal exam
Patient reports daily intake of NSAIDs. On anticoagulation
She has a history of PUD with perforation
Discussed with gastroenterology
Hold Eliquis.
Continue IV PPI.
Consider endoscopic evaluation while inpatient pending cardiac clearance.
Alcohol use disorder
Anxiety/depression
Patient reports daily alcohol up to 8 drinks.
Alcohol level undetectable.
Urine drug screen negative.
Monitor closely
Continue MSAS protocol
DVT Prophylaxis:� US pending to rule out LLE and LUE clots given edema.� GI bleeding possibility as noted above.� Avoid mechanical or pharmacologic prophylaxis for now.� SCDs can be started if US are negative.
Code Status:� Full
Anticipated Discharge: > 48 hours
Subjective/Interval History
-
Date of Service: July 01, 2023
States she would really like a cigarette
Objective Data
-
Labs:
Laboratory Results
07/01/23
05:39
WBC 4.4 L
Hgb 9.6 L
Hct 29.1 L
Plt Count 189
Sodium 136
Potassium 3.5
Chloride 107
Carbon Dioxide 28
BUN 12
Creatinine 0.7
Glucose 80
Calcium 8.7
Vital Signs:
Vital Signs
Temp Pulse Resp BP Pulse Ox
97.8 F 56 18 158/68 100
07/01/23 15:00 07/01/23 15:00 07/01/23 15:00 07/01/23 15:00 07/01/23 15:00
I&O
06/30/23 07/01/23 07/02/23
06:59 06:59 06:59
Output Total 100 / 100
Balance -100 / -100
Review of Systems
-
History Source: Patient and Coordinated Provider
Constitutional: Denies Fever
EENT: Reports No Symptoms Reported
Respiratory: Reports No Symptoms; Denies Trouble Breathing
Cardiac: Reports No Symptoms; Denies Chest Pain
Neuro: Reports Weakness (left sided weakness)
Physical Exam
-
General: Well Developed and Well Nourished
HEENT: Normocephalic, Atraumatic and Moist Mucous Membranes
Respiratory: Clear to Auscultation
Cardiac: Regular Rhythm and S1/S2; Negative Murmur, Rub or Gallop
GI: Soft, Nontender, Nondistended and Normal Bowel Sounds; Negative Organomegaly
Rectal: Deferred by Provider
Musculoskeletal: No Clubbing, No Cyanosis and No Edema
Skin: Negative Rash
Neuro: Awake, Alert, Oriented, AO x 3 and Nonfocal/Grossly Intact
[2023-07-01 19:55] VITALS: BP 159/85
[2023-07-01] MEDS: FEOSOL 325 MG PO (21:04)
[2023-07-01 23:51] VITALS: BP 127/79; BP 143/84; BP 156/80; PULSE 77; PULSE 79
[2023-07-02] VITALS (7 sets, daily range): BP systolic 120–174; BP diastolic 67–94; PULSE 62–88; BMI 23.1
[2023-07-02] MEDS: ULTRAM 50 MG PO ×4 (03:35→22:14)
[2023-07-02] MEDS: TYLENOL 650 MG PO ×3 (08:19→20:45)
[2023-07-02] MEDS: NICODERM TRANSDERMAL 14 MG TRANSDERM ×2 (08:19→18:14)
[2023-07-02] MEDS: PROTONIX IV 40 MG IV ×2 (08:20→20:49)
[2023-07-02] MEDS: COZAAR 25 MG PO (08:20)
[2023-07-02] MEDS: VITAMIN B-12 1000 MCG PO (08:20)
[2023-07-02] MEDS: NSS (PRESERVATIVE FREE) 10 ML IV ×2 (08:20→20:49)
[2023-07-02] MEDS: FOLVITE 1 MG PO (08:20)
[2023-07-02] MEDS: THIAMINE INJECTION 200 MG IV ×2 (08:21→20:50)
--- NOTE | 2023-07-02 09:58 | CON.NS ---
Chief Complaint
-
cervical stenosis and myelopathy
History of Present Illness
This is a 62 yo female who presented with left UE and LE weakness with associated b/l UE parasthesias and 1 week history of severe gait ataxia. She was found to be anemic and was on eliquis which is now on hold. Neurology saw patient was was
concerned about cervical myelopathy. MRI of brain and c spine were completed. MRI brain negative, MRI cspine shows multi level stenosis however it was not completed and is motion limited.
Review of Systems
-
10 pt ROS completed and neg except as stated
Medication and Allergies
Home Medications
Home Medications
Medication Instructions Recorded
apixaban 5 mg tablet (Eliquis) 5 mg PO BID Blood Clot 06/30/23
Prevention/Tx
sntezmc-vyrjzuajnyxuh-dkazvnfl 250 1 tab PO Q6H PRN Pain 06/30/23
mg-250 mg-65 mg tablet (Excedrin
Extra Strength)
citalopram 20 mg tablet (Celexa) 20 mg PO DAILY Depression 06/30/23
metoprolol tartrate 37.5 mg tablet 37.5 mg PO BID Blood Pressure 06/30/23
Allergies
Allergies
Allergy/AdvReac Type Severity Reaction Status Date / Time
Sulfa (Sulfonamide Allergy Unknown Verified 06/29/23 22:23
Antibiotics)
Physical Exam
-
Exam:
mild weakness in left Ue and LE
b/l hyper reflexia
b/l hoffmans sign
CN's intact
AAOx3
Resp even and unlabored
MRI c-spine with what appear to be severe stenosis from C3-?C6
Problems
-
Problem Status Onset Code
Bradycardia R00.1
Anemia D64.9
Assessment / Plan
-
Cervical stenosis, Cervical myelopathy
-Repeat MRI cervical: will dose with valium 5 mg one hour prior and 5mg just before going down
-Will likely need surgery this admission
-continue to hold eliquis at this time
-will need cardiac clearance for surgery
-recs to follow once MRI is completed
[2023-07-02] MEDS: VALIUM 5 MG PO ×2 (11:30→12:14)
--- NOTE | 2023-07-02 13:16 | W.PN.HOSP.TC ---
Addendum entered and electronically signed by Lamont Altman MD 07/02/23 13:34:
based on cervical spine disease, change status to full admit
Original Note:
Today's Communication/Plan
-
retry MRI cervical spine with pre-op study Valium with potential surgical intervention to follow
GI intervention on hold
recheck labs
Assessment / Plan
Assessment / Plan
Impression:
Presentation with generalized fatigue,. Of anxiety and palpitations.
Reported left-sided weakness.
Cervical pain.
Bradycardia.
Alcohol use disorder with concern for alcohol withdrawal
Chronic anemia slowly trending down hemoglobin and heme positive stool. Fe sat 8%, Ferritin 23.0
07/01 Hgb 9.6
07/01 MRI cervical spine: There is significant degenerative disk and joint disease in the cervical spine from C3 through T1, however the patient was unable to cooperate and I cannot evaluate for myelopathy.
as per Dr. Grant, pt will receive Valium prior to repeat cervical MRI. Based on images, a decision will be made as to need/timing of cervical spine intervention
Conditions prior to admission
Paroxysmal atrial fibrillation
Anticoagulation with Eliquis
Eliquis on hold
Prior history of CVA (fascial droop and aphasia March 2022)
Peptic ulcer disease with history of perforation
Essential hypertension
Hyperlipidemia
Anemia of chronic disease.
Anxiety.
Ongoing tobacco use disorder
Ongoing alcohol use disorder.
History of bladder mass with resection.
Status postcholecystectomy.
Status post AAA repair with graft in 2017.
Status post bariatric surgery sleeve gastrectomy.
History of spinal surgery.
Plan:
Presentation with severe anxiety.
Reported left upper extremity weakness
Prior history of CVA.
Current neurologic examination with no focal findings on admission as per Dr. Eddy
CT scan of the head with no acute intracranial process
MRI of the brain with no evidence of acute CVA.
Patient reports prior CVA, although with no evidence of old infarct on imaging.
Monitor neurologic status closely.
Hold Eliquis for potential cervical surgery
discussed with Dr. Jerry, due to restriction of cervical movement from cervical spine disease, endoscopy will be unable to be done at this time
Neurology input appreciated
discussed with Dr. Turner, she would like neurosurg input regarding cervical spine disease and Dr. Grant consult has been requested
MRI: There is significant degenerative disk and joint disease in the cervical spine from C3 through T1, however the patient was unable to cooperate and I cannot evaluate for myelopathy.
Paroxysmal atrial fibrillation.
Telemetry/ECG noted with sinus bradycardia with heart rate down to 30
TSH within normal limits
Patient reports taking extra dose of metoprolol with her palpitations and anxiety.
Off beta-yuliya since admission.
Cardiology consultation
Dr. Grant will be requesting pre-op cardio clearance if surgery to be performed
Consider EP workup.
Essential hypertension.
Most recent echocardiogram 11/07 with LVEF of 60% with no significant valvular abnormalities per
06/30/23 echocardiogram: Mild concentric left ventricular hypertrophy. Normal left ventricular chamber
�size. Normal left ventricular systolic function. Left ventricular ejection
�fraction is 66% by Blancas's method.� Diastolic function indeterminate.
�Normal right ventricular size and function.
�Indexed LA volume is severely abnormal (> 48 mL/m2).
�Mild to moderate mitral regurgitation.
�Trace tricuspid regurgitation. Estimated pulmonary artery pressure of 25 mmHg,
�assuming a right atrial pressure of 3 mmHg.
�No prior study available for comparison.
�
Worsening anemia with hemoglobin trending down to 8.6 (9.8 on 01/11, 14.3 on 10/10), 07/01 9.6
Microcytosis with iron deficiency
No clinical evidence of brisk hemorrhage
Heme positive on rectal exam
Patient reports daily intake of NSAIDs. On anticoagulation
She has a history of PUD with perforation
Alcohol use disorder
Anxiety/depression
Patient reports daily alcohol up to 8 drinks.
Alcohol level undetectable.
Urine drug screen negative.
Monitor closely
Continue MSAS protocol
DVT Prophylaxis:� US pending to rule out LLE and LUE clots given edema.� GI bleeding possibility as noted above.� Avoid mechanical or pharmacologic prophylaxis for now.� SCDs can be started if US are negative.
Code Status:� Full
Anticipated Discharge: > 48 hours
Subjective/Interval History
-
Date of Service: July 02, 2023
Awake, alert
Objective Data
-
Vital Signs:
Vital Signs
Temp Pulse Resp BP Pulse Ox
98 F 91 16 174/91 98
07/02/23 11:00 07/02/23 11:00 07/02/23 03:40 07/02/23 11:00 07/02/23 11:00
I&O
07/01/23 07/02/23 07/03/23
06:59 06:59 06:59
Intake Total 420 / 420 240 / 240
Balance 420 / 420 240 / 240
Review of Systems
-
History Source: Patient and Coordinated Provider
Constitutional: Denies Fever
EENT: Reports No Symptoms Reported
Respiratory: Reports No Symptoms; Denies Trouble Breathing
Cardiac: Reports No Symptoms; Denies Chest Pain
Neuro: Reports Weakness (left sided weakness)
Physical Exam
-
General: Well Developed and Well Nourished
HEENT: Normocephalic, Atraumatic and Moist Mucous Membranes
Respiratory: Clear to Auscultation
Cardiac: Regular Rhythm and S1/S2; Negative Murmur, Rub or Gallop
GI: Soft, Nontender, Nondistended and Normal Bowel Sounds; Negative Organomegaly
Rectal: Deferred by Provider
Musculoskeletal: No Clubbing, No Cyanosis and No Edema
Skin: Negative Rash
Neuro: Awake, Alert, Oriented, AO x 3 and Nonfocal/Grossly Intact (left sided weakness, did not attempt to ambulate)
Psych: Calm and Intact Judgement/Insight
--- NOTE | 2023-07-02 13:35 | PTCARENOTE ---
Received pt from MRI on stretcher. AAOx3, MSAS & NIHSS completed with 4E RN at bedside. VSS. Oriented to room. Call heath within reach.
--- NOTE | 2023-07-02 17:16 | W.PN.UPDATE ---
Update Note
Progress Note Update
MRI reviewed
C3/4 severe stenosis and cord signal change, otherwise mutli level spondylosis without major stenosis or abnormal spinal cord signal
Will plan for C3/4 ACDF this week
[2023-07-02] MEDS: CRESTOR 10 MG PO (17:50)
--- NOTE | 2023-07-02 17:59 | W.PN.CARDCBS ---
Today's Communication / Plan
-
Stable cardiac status despite PAF/sick sinus syndrome
okay to proceed with cervical spine surgery at acceptable cardiac risk
No further cardiac testing required preoperatively
Impression / Plan
-
PCP:Dr. Reba Maria
Charge Operator:Previously seen by Dr. Montserrat Castro ([place]), Seen as EP consult 06/27/2023 as new patient by Dr. Anil Haskins
Impression:
Sick sinus syndrome, paroxysmal atrial fibrillation/flutter with bradycardia
Cervical stenosis C3/4 with cord impingement, scheduled for ACDF later this week
Anemia with heme positive stool
Chronic anticoagulation on Eliquis
Prior CVA (facial droop and aphasia) 03/2022
Hypertension
Hyperlipidemia
Migraine
Anxiety
Ongoing tobacco abuse
TURBT
Anxiety / Depression
Cholecystectomy open repair secondary to rupture and sepsis
AAA repair w/ graft [facility] 2017
Status post laparoscopic sleeve gastrectomy
Lumbar disc surgery [facility]
Echo 11/04/2018: EF 60%, no significant valvular disease
Lexiscan nuclear stress test 06/10/2022: EF 59%, no significant ischemia or scarring
Lexiscan Cardiolite stress test 06/24/2020: EF 73%, no significant ischemia or scarring
Holter monitor October 2022: Paroxysmal atrial fibrillation
Echo 06/30/2023: EF 66%, mild LVH, dilated left atrium, mild to moderate MR, trace TR, normal pulmonary artery pressure
Plan:
Despite sick sinus syndrome/tachybradycardia/PAF she seems relatively stable at this time.
She will require decompression of her cervical spine for spinal cord impingement. Okay to proceed as planned at acceptable cardiac risk. Heart rate may be labile perioperatively but do not anticipate major issues and would recommend proceeding as
planned. Pauses with likely respond to anticholinergic therapy, and atrial fibrillation is not rapid, likely would not require IV metoprolol.
Continue to hold anticoagulation at this time.
Her echocardiogram was reassuring.
She could also undergo endoscopic evaluation, though suspect this will be delayed in light of the need for cervical spine decompression.
Clinical summary: Patient is a 62-year-old female with past medical history significant for paroxysmal atrial fibrillation on chronic anticoagulation with Eliquis, hypertension, hyperlipidemia, stroke, AAA repair, migraine headache, spinal stenosis,
bladder resection, tobacco abuse. She was seen as new patient in cardiology office 06/27/2023 to establish care and complained of progressively worsening left upper and lower extremity weakness and gait instability. She was referred to the emergency
department. She was found to be bradycardic with heart rates as low as 30 bpm but admitted to increasing metoprolol on her own secondary to palpitations. She was also noted to be anemic. Patient signed out AMA. Following discharge she reports she
did stop taking metoprolol. She presented back to emergency department 06/29/2023 with progressively worsening weakness and pain all over. Patient admits to drinking alcohol on a regular basis and using Excedrin up to 4 times daily for aches and
pains. Hemoglobin noted to be 8.0 with heme positive stool. EKG demonstrated sinus bradycardia with PACs. Troponin 0.015. proBNP 1590. Chest x-ray with mild central pulmonary vascular congestion. Head CT was negative for acute abnormality on
06/27/2023. MRI of brain 06/30/2022 without acute evidence of stroke.
At the time of this evaluation patient lying in bed complaining of neck pain. She appears anxious at times. She c/o intermittent palpitations that come and go. Notes elevated heart rate when she gets anxious. Tells me she takes Toprol 37.5 mg BID
but at times will take an extra 25-50 mg daily for palpitations. She smokes 1 pack daily and drinks 3-4 mudslides daily. Denies chest pain but will feel winded and dizzy with high heart rates
Progress Note - Charge Operator
Subjective
Date of Service: July 02, 2023:
Allergies: Sulfa
Home medications: Apixaban 5 twice daily, Excedrin, Celexa, metoprolol ER 37.5 twice daily
Inpatient Meds: Losartan 25 mg twice daily, nicotine patch, rosuvastatin, metoprolol on hold, folate, thiamine, pantoprazole, B12, iron
FH/SH/PSH/PMH: Reviewed
ROS negative except as above
No recent labs
Telemetry, PAF, pauses heart rates into the 30s
Objective
Labs:
07/01/23 05:39
07/01/23 05:39
Labs
Hgb 9.6 g/dL (12.0-16.0) L 07/01/23 05:39
Hct 29.1 % (37.0-47.0) L 07/01/23 05:39
Plt Count 189 10^3/uL (130-400) 07/01/23 05:39
Sodium 136 mmol/L (135-145) 07/01/23 05:39
Potassium 3.5 mmol/L (3.5-5.1) 07/01/23 05:39
BUN 12 mg/dl (7-17) 07/01/23 05:39
Creatinine 0.7 mg/dL (0.6-1.0) 07/01/23 05:39
Glucose 80 mg/dl (70-99) 07/01/23 05:39
Troponins
06/29/23
22:59
Troponin I 0.015
Vital Signs and I&O:
Vital Signs
Temp Pulse Resp BP Pulse Ox
36.6 C 85 16 149/88 98
07/02/23 15:48 07/02/23 15:48 07/02/23 15:48 07/02/23 15:48 07/02/23 15:48
Vital Signs
Temp Pulse Resp BP Pulse Ox
36.6 C 85 16 149/88 98
07/02/23 15:48 07/02/23 15:48 07/02/23 15:48 07/02/23 15:48 07/02/23 15:48
Intake & Output
06/30/23 07/01/23 07/02/23 07/03/23
07:59 07:59 07:59 07:59
Intake Total 420 / 420 240 / 240
Output Total 100 / 100
Balance -100 / -100 420 / 420 240 / 240
Physical Exam
Physical Exam
149/88, pulse 85, complaining of some discomfort, cardiac exam unchanged irregular rate and rhythm currently in A-fib clear lungs head neck exam unremarkable abdomen benign extremities without edema
[2023-07-02] MEDS: COZAAR 50 MG PO (20:50)
[2023-07-02] MEDS: FEOSOL 325 MG PO (21:57)
[2023-07-02] MEDS: MELATONIN 5 MG PO (22:14)
--- NOTE | 2023-07-02 23:23 | W.PN.GI.CBS2 ---
Today's Communication / Plan
-
-Iron deficiency anemia, heme positive stool without any overt bleeding
Hemoglobin stable without any significant change, BUN normal
No current active bleeding
Continue PPI twice daily
On low residue diet
Noted plan for possible cervical spine surgery this week .
Hold off on any GI procedures at that time until after cervical spine surgery, there is no urgency for the endoscopy procedures given no active bleeding.
We will see her in the office in follow-up for an upper endoscopy as outpatient
Reports history of chronic anemia as well with history of perforated gastric ulcer status postrepair in 2019 in [place].
Continues to take Excedrin/Advil daily for neck pain/headaches. Reinforced completely avoiding NSAIDs
Await records from her previous GI regarding EGD /colonoscopy that was done in 2022
Monitor H&H and bowel movements. If any black stool, please call us back.
Will sign off, please call back if needed
Assessment / Plan
-
The patient is a 62-year-old female with a past medical history significant for hypertension, paroxysmal atrial fibrillation on Eliquis, CVA 2021, history of benign bladder mass (management at [facility]), anxiety, depression, history of ruptured
gallbladder with prolonged hospitalization and open laparoscopy, history of perforated gastric ulcer secondary to NSAIDs with patching ~2018, history of colon polyps, who presented to the emergency room with a multitude of complaints including
weakness, extremity swelling, and neck pain. We are being asked to evaluate for anemia and heme positive stool. Records indicate she was seen 3 days ago in the ER for weakness, neck pain, and extremity numbness and had declined work-up/admission at
that time. She presented again with recurrent symptoms. Found to be anemic with a hgb 8 and heme + brown stool. Reported hx of perforated gastric ulcer in 2019 requiring patching (records not available). With daily NSAID use. +SANTANA on labs with low
MCV and iron saturation. No complaints of pain or obvious signs of bleeding currently. Last EGD/colonoscopy ~3 years ago per pt. She is also on chronic AC with Eliquis for afib which has been held.
Problem list:
-microcytic anemia, brown heme + stool
-hx perforated ulcer with daily NSAID use
-prior CVA
-bradycardia
-ataxia, weakness
-neck pain
-elevated BUN
-Chronic AC on Eliquis for Afib
Other pertinent medical hx:
-hx ruptured GB with open CCY/sepsis per pt 2022
-hx colon polyps
-fatty bladder tumor with resection per pt at [facility]
-anxiety/depression
Recommendations:
-Iron deficiency anemia, heme positive stool without any overt bleeding
Hemoglobin stable without any significant change, BUN normal
No current active bleeding
Continue PPI twice daily
On low residue diet
Noted plan for possible cervical spine surgery this week .
Hold off on any GI procedures at that time until after cervical spine surgery, there is no urgency for the endoscopy procedures given no active bleeding.
We will see her in the office in follow-up for an upper endoscopy as outpatient
Reports history of chronic anemia as well with history of perforated gastric ulcer status postrepair in 2019 in [place].
Continues to take Excedrin/Advil daily for neck pain/headaches. Reinforced completely avoiding NSAIDs
Await records from her previous GI regarding EGD /colonoscopy that was done in 2022
Will sign off, please call back if needed
Subjective
Subjective
Date of Service: July 02, 2023
Patient without any further melena
Objective
Data Reviewed
Laboratory Data:
Laboratory Results
07/01/23 05:39
07/01/23 05:39
Laboratory Results
Total Bilirubin 0.7 mg/dl (0.2-1.3) 06/29/23 22:59
AST 33 U/L (14-36) 06/29/23 22:59
ALT 12 U/L (0-35) 06/29/23 22:59
Alkaline Phosphatase 102 U/L (38-126) 06/29/23 22:59
Vital Signs and I&O:
Vital Signs
Temp Pulse Resp BP Pulse Ox
98.5 F 60 20 130/61 98
07/02/23 19:27 07/02/23 20:50 07/02/23 19:27 07/02/23 20:50 07/02/23 19:27
I&O
07/01/23 07/02/23 07/03/23
06:59 06:59 06:59
Intake Total 420 / 420 1060 / 1060
Balance 420 / 420 1060 / 1060
[2023-07-03] VITALS (7 sets, daily range): BP systolic 116–158; BP diastolic 71–96; PULSE 125; BMI 23.2
[2023-07-03 01:16] LABS: Endomysial IgA Antibody Titer <1:10 (<1:10)
[2023-07-03] MEDS: ULTRAM 50 MG PO ×3 (05:00→18:08)
[2023-07-03 05:10] LABS: % Basophils 0.5 % (0-2); % Eosinophils 3.2 % (0-6); % Immature Granulocytes 0.4 % (0-0.5); % Lymphocytes 11.9 % (20.5-51.1); % Monocytes 11.8 % (1.7-9.3); % Neutrophils 72.2 % (42.2-75.2); Absolute Eosinophils 0.3 10^3/uL (0-0.7); Absolute Lymphocytes 0.9 10^3/uL (1.2-3.4); Absolute Monocytes 0.9 10^3/uL (0.1-0.6); Absolute Neutrophils 5.6 10^3/uL (1.4-6.5); Hematocrit 31.6 % (37.0-47.0); Hemoglobin 9.9 g/dL (12.0-16.0); Mean Corp Hgb Conc. 31.3 g/dL (33.0-37.0); Mean Corpuscular Hgb 23.9 pg (27.0-31.0); Mean Corpuscular Volume 76.3 fL (81.0-99.0); Nucleated Red Blood Cells % 0 %; Platelet Count 195 10^3/uL (130-400); Red Blood Cell Count 4.14 10^6/uL (4.20-5.40); Red Cell Dist. Width 17.3 % (11.5-14.5); White Blood Cell Count 7.7 10^3/uL (4.8-10.8)
[2023-07-03 05:34] LABS: Blood Urea Nitrogen 20 mg/dl (7-17); Calcium 8.3 mg/dl (8.4-10.2); Carbon Dioxide 26 mmol/L (22-30); Chloride 110 mmol/L (98-107); Estimated Creatinine Clearance 74 ml/min; Glucose 88 mg/dl (70-99); Potassium 3.3 mmol/L (3.5-5.1); Sodium 135 mmol/L (135-145); eGFR > 60.00
[2023-07-03] MEDS: DILAUDID 0.5 MG IV (07:51)
[2023-07-03] MEDS: NSS (PRESERVATIVE FREE) 10 ML IV ×2 (07:52→20:34)
[2023-07-03] MEDS: FOLVITE 1 MG PO (07:53)
[2023-07-03] MEDS: VITAMIN B1 100 MG PO ×2 (07:53→20:34)
[2023-07-03] MEDS: VITAMIN B-12 1000 MCG PO (07:53)
[2023-07-03] MEDS: PROTONIX IV 40 MG IV ×2 (07:53→20:34)
[2023-07-03] MEDS: NICODERM TRANSDERMAL 14 MG TRANSDERM (07:54)
[2023-07-03] MEDS: COZAAR 50 MG PO ×2 (08:03→20:34)
--- NOTE | 2023-07-03 08:16 | W.PN.NEURO.1 ---
Today's Communication / Plan
-
.
Neuro Assessment/Plan
Assessment
This is a 62-year-old female who presented to on 06/29/23 with report of an abrupt change in left arm and leg coordination and strength with MRI Cspine showing significant degenerative disk and joint disease in the cervical spine from C3 through
T1; exam was limited by patient motion. Hemoglobin 8.9, heme positive stool. Eliquis placed on hold.
-MRI Brain 06/30/23: No evidence of acute intracranial abnormality.
-MRI Cervical Spine 07/02/23: There is severe degenerative disk and joint disease as outlined above. There is severe central canal stenosis with cord compression and myelopathy or transverse myelitis at C3-4 due to soft and hard disk protrusion
diffusely with a left central disk herniation and significant facet arthropathy with moderate to severe bilateral foraminal narrowing. There is mild cord compression at C4-5, mild right ventral cord compression at C5-6 and C6-7. No other level of
myelopathy. Multilevel bilateral degenerative change, with bilateral foraminal narrowing.
I. C3/C4 severe degenerative disc and joint disease with severe spinal cord compression.
II. MRI brain negative for stroke.
III. Iron deficiency anemia, heme positive stool without overt bleeding.
Plan
-Resume home Eliquis when cleared by Neurosurgery, plan for surgery this week.
-DVT prophylaxis.
-PT/OT evaluations.
-Will sign-off. Please contact our Neurology service as-needed with any questions/concerns.
Subjective/Objective
Subjective Data
Date of Service: July 03, 2023
No acute events overnight. Patient reports that she woke up this morning crying in pain due to her neck/upper extremity discomfort, but after receiving tramadol she reports feeling great. Her weakness/gait dysfunction has improved somewhat. She
denies any headache, dizziness, vision changes, speech/swallow difficulty, nausea, chest pain, palpitations, and shortness of breath. She reports some numbness in bilateral hands and chronic left-sided slight weakness since her stroke in 2021.
Objective Data
Vital Signs
Temp Pulse Resp BP Pulse Ox
97.8 F 76 16 131/96 98
07/03/23 03:39 07/03/23 08:03 07/03/23 03:39 07/03/23 08:03 07/03/23 03:39
Lab Results
07/03/23 04:33
07/03/23 04:33
Sodium 135 mmol/L (135-145) 07/03/23 04:33
Potassium 3.3 mmol/L (3.5-5.1) L 07/03/23 04:33
BUN 20 mg/dl (7-17) H 07/03/23 04:33
Glucose 88 mg/dl (70-99) 07/03/23 04:33
Calcium 8.3 mg/dl (8.4-10.2) L 07/03/23 04:33
Ytp-G-Zqqdnsxngon Pept 1590 pg/ml 06/29/23 22:59
LDL Cholesterol, Calc 61 mg/dl 06/30/23 02:23
Vitamin B12 360 pg/ml (239-931) 06/30/23 02:23
Ur Buprenorphine Negative (Negative) 06/30/23 03:53
Patient Allergies
Sulfa (Sulfonamide Antibiotics) Allergy (Verified 06/29/23 22:23)
Unknown
LDL Level: <70, continue statin
Review of Systems
-
History Source: Patient
EENT: Negative Blurry Vision, Decreased Vision or Swallowing Difficulty
Respiratory: Negative Trouble Breathing
Cardiac: Negative Chest Pain or Palpitations
Abdomen/GI: Negative Nausea or Vomiting
Genitourinary: Negative Difficulty Voiding
Musculoskeletal: Neck Pain (improved with tramadol)
Neuro: Weakness, Numbness and Ataxia; Negative Dizzy, Headache, Tremors or Speech Problem
Physical Exam
-
General: No Apparent Distress
Eyes: No Ptosis and PERRLA
HEENT: Normocephalic and Atraumatic
Neck: Full Range of Motion
Respiratory: No Dyspnea
GI: Non-distended
Extremities: No Clubbing, No Cyanosis and No Edema
Psych: Unremarkable
Extended Neurological Exam
Mood & Affect: Mood Unremarkable and Affect Unremarkable
Attention Span & Concentration: Awake, Alert and Interactive
Memory: Unremarkable (AAOx3) and Able to Recall
Tremor: Hand Tremor Absent and Head Tremor Absent
Involuntary Movement: None
Speech: Quality Unremarkable, Quantity Unremarkable and Rate of Production Unremarkable
Cranial Nerve II: Left Eye: Pupillary Reactivity Unremarkable and Visual Ferguson Intact; Negative Pupillary Size Unremarkable (3 BR)
Cranial Nerve II: Right Eye: Pupillary Reactivity Unremarkable and Visual Ferguson Intact; Negative Pupillary Size Unremarkable (2 BR)
Cranial Nerves III, IV, : Extraocular Movement: Extraocular Movement Full in all Directions
Cranial Nerve V: Facial Sensation: Intact to Light Touch
Cranial Nerve VII: Facial Symmetry: Normal Facial Symmetry
Cranial Nerve VIII: Hearing: Unremarkable Hearing to Normal Conversational Volume
Cranial Nerves IX, X: Palate Movement: Palate Elevation Symmetric
Cranial Nerve XI: Shoulder Shrug: Unremarkable
Cranial Nerve XII: Tongue Protusion: Midline
Muscle Strength, Overall: Reduced on Left (5-/5 LUE and LLE)
Muscle Bulk & Tone: Bulk Unremarkable and Tone Unremarkable
Pronator Drift: No Drift in Upper Extremities and No Drift in Lower Extremities
Touch Sensation: Double Simultaneous Stimulation Unremarkable
Coordination: Lrlpiz-xaot-pqxmaw Testing Unremarkable
Babinski Sign: Absent Bilaterally
Modified Richardson Score (MRS)
-
MRS Score:
Data Reviewed
-
MRI Head: Report Reviewed and Image Reviewed
MRI Cervical Spine: Report Reviewed and Image Reviewed
Labs: Report Reviewed
Lipid Profile: Report Reviewed
Reviewed with: Physician and Patient
Medications
-
Active Medications
Generic Name Dose Route Start Last Admin
Trade Name Freq PRN Reason Stop Dose Admin
Acetaminophen 650 mg 06/30/23 02:08 07/02/23 20:45
Acetaminophen 325 Mg Tablet PO 07/28/23 02:07 650 mg
Q4HPRN PRN Administration
Mild Pain / Temp > 101
Cyanocobalamin 1,000 mcg 06/30/23 12:00 07/03/23 07:53
Cyanocobalamin 1,000 Mcg Tablet PO 07/28/23 11:59 1,000 mcg
DAILY CRISTOFER Administration
Docusate Sodium 100 mg 06/30/23 13:35
Docusate Sodium 100 Mg Capsule PO 07/28/23 13:34
BIDPRN PRN
no BM > 24 hours
Ferrous Sulfate 325 mg 06/30/23 22:00 07/02/23 21:57
Ferrous Sulfate 325 Mg Tablet PO 07/28/23 21:59 325 mg
HS CRISTOFER Administration
Folic Acid 1 mg 06/30/23 08:00 07/03/23 07:53
Folic Acid 1 Mg Tablet PO 07/28/23 07:59 1 mg
DAILY CRISTOFER Administration
Hydralazine HCl 5 mg 06/30/23 02:08 06/30/23 20:32
Hydralazine 20 Mg/Ml Vial IV 07/28/23 02:07 5 mg
Q6HPRN PRN Administration
SBP > 180
Folic Acid 1 mg/ Sodium 50.2 mls @ 200.8 mls/hr 06/30/23 02:08
Chloride IV 07/28/23 02:07
DAILYPRN PRN
if NPO
Lorazepam 1 mg 06/30/23 02:08 07/01/23 17:04
Lorazepam 1 Mg Tablet PO 07/28/23 02:07 1 mg
Q2HPRN PRN Administration
MSAS 5-7
Lorazepam 1 mg 06/30/23 02:08
Lorazepam 2 Mg/Ml Vial IV 07/28/23 02:07
Q1HPRN PRN
MSAS 8-11
Lorazepam 2 mg 06/30/23 02:08
Lorazepam 2 Mg/Ml Vial IV 07/28/23 02:07
Q1HPRN PRN
MSAS > 11
Losartan Potassium 50 mg 07/02/23 20:00 07/03/23 08:03
Losartan 25 Mg Tablet PO 07/30/23 19:59 50 mg
BID CRISTOFER Administration
Metoprolol Tartrate 5 mg 06/30/23 16:02 07/03/23 10:53
Metoprolol 5 Mg/5 Ml Vial IV 07/28/23 16:01 5 mg
Q4HPRN PRN Administration
HR >120
Nicotine 14 mg 07/01/23 17:00 07/03/23 07:54
Nicotine 14 Mg Patch TRANSDERM 07/29/23 16:59 14 mg
DAILY CRISTOFER Administration
Pantoprazole Sodium 40 mg 06/30/23 08:00 07/03/23 07:53
Pantoprazole Sodium 40 Mg/10 Ml Vial IV 07/28/23 07:59 40 mg
BID CRISTOFER Administration
Rosuvastatin Calcium 10 mg 06/30/23 18:00 07/02/23 17:50
Rosuvastatin (Crestor) 10 Mg Tablet PO 07/28/23 17:59 10 mg
QPM CRISTOFER Administration
Sodium Chloride 0 flush 06/30/23 01:00
Sodium Chloride 0.9% (Flush) Syringe IV 07/28/23 00:59
PER PROTOCOL CRISTOFER
Sodium Chloride 0 ml 06/30/23 02:08
Sodium Chloride 0.9% (Preservative Free) 10 Ml Vial IV 07/28/23 02:07
PRN PRN
To dilute IV Ativan
Protocol
Sodium Chloride 10 ml 06/30/23 08:00 07/03/23 07:52
Sodium Chloride 0.9% (Preservative Free) 10 Ml Vial IV 07/28/23 07:59 10 ml
BID CRISTOFER Administration
Thiamine HCl 100 mg 07/03/23 08:00 07/03/23 07:53
Thiamine 100 Mg Tablet PO 07/31/23 07:59 100 mg
BID CRISTOFER Administration
Tramadol HCl 50 mg 06/30/23 02:08 07/03/23 05:00
Tramadol Hcl 50 Mg Tablet PO 07/28/23 02:07 50 mg
Q6HPRN PRN Administration
moderate pain
Home Medications
Medication Instructions Recorded
apixaban 5 mg tablet (Eliquis) 5 mg PO BID Blood Clot 06/30/23
Prevention/Tx
lsbuhej-wgpvjckpclnjb-gijsuzmn 250 1 tab PO Q6H PRN Pain 06/30/23
mg-250 mg-65 mg tablet (Excedrin
Extra Strength)
citalopram 20 mg tablet (Celexa) 20 mg PO DAILY Depression 06/30/23
metoprolol tartrate 37.5 mg tablet 37.5 mg PO BID Blood Pressure 06/30/23
--- NOTE | 2023-07-03 08:28 | W.PN.CARDCBS ---
Today's Communication / Plan
-
As per neurosurgery, pt with C3/4 severe spinal cord stenosis with signal change, otherwise multi level spondylosis without major stenosis or abnormal spinal cord signal
with plan for C3/4 procedure this week
Remains stable from a cardiac standpoint. Remains sinus with very short PAFib and bradycardia.
If she has longer episodes may consider resuming anticoagulation with IV heparin as she has an upcoming spinal procedure/surgery this week. However given heme positive stool will cont to hold for now.
Remains off Eliquis in anticipation of her neurosurgical procedure/intervention.
She is mild to mod risk for her procedure but compensated and acceptable risk.
Avoid AV teo blocking agents presently given episodes of bradycardia.
Recent echo with preserved EF.
Impression / Plan
-
.
PCP:Dr. Reba Maria
Leather Belt Maker:Previously seen by Dr. Montserrat Castro ([place]), Seen as EP consult 06/27/2023 as new patient by Dr. Anil Haskins
Impression:
Sick sinus syndrome, paroxysmal atrial fibrillation/flutter with bradycardia
Cervical stenosis C3/4 with cord impingement, scheduled for ACDF later this week
Anemia with heme positive stool
Chronic anticoagulation on Eliquis
Prior CVA (facial droop and aphasia) 03/2022
Hypertension
Hyperlipidemia
Migraine
Anxiety
Ongoing tobacco abuse
TURBT
Anxiety / Depression
Cholecystectomy open repair secondary to rupture and sepsis
AAA repair w/ graft [facility] 2017
Status post laparoscopic sleeve gastrectomy
Lumbar disc surgery [facility]
Echo 11/04/2018: EF 60%, no significant valvular disease
Lexiscan nuclear stress test 06/10/2022: EF 59%, no significant ischemia or scarring
Lexiscan Cardiolite stress test 06/24/2020: EF 73%, no significant ischemia or scarring
Holter monitor October 2022: Paroxysmal atrial fibrillation
Echo 06/30/2023: EF 66%, mild LVH, dilated left atrium, mild to moderate MR, trace TR, normal pulmonary artery pressure
Plan:
As per neurosurgery, pt with C3/4 severe spinal cord stenosis with signal change, otherwise multi level spondylosis without major stenosis or abnormal spinal cord signal
with plan for C3/4 procedure this week
Remains stable from a cardiac standpoint. Remains sinus with very short PAFib and bradycardia.
If she has longer episodes may consider resuming anticoagulation with IV heparin as she has an upcoming spinal procedure/surgery this week. However given heme positive stool will cont to hold for now.
Remains off Eliquis in anticipation of her neurosurgical procedure/intervention.
She is mild to mod risk for her procedure but compensated and acceptable risk.
Avoid AV teo blocking agents presently given episodes of bradycardia.
Recent echo with preserved EF.
Iron def anemia with heme positive stool, GI evaluating and recommended outpt reeval and oupt EGD and has signed off.
Clinical summary: Patient is a 62-year-old female with past medical history significant for paroxysmal atrial fibrillation on chronic anticoagulation with Eliquis, hypertension, hyperlipidemia, stroke, AAA repair, migraine headache, spinal stenosis,
bladder resection, tobacco abuse. She was seen as new patient in cardiology office 06/27/2023 to establish care and complained of progressively worsening left upper and lower extremity weakness and gait instability. She was referred to the emergency
department. She was found to be bradycardic with heart rates as low as 30 bpm but admitted to increasing metoprolol on her own secondary to palpitations. She was also noted to be anemic. Patient signed out AMA. Following discharge she reports she
did stop taking metoprolol. She presented back to emergency department 06/29/2023 with progressively worsening weakness and pain all over. Patient admits to drinking alcohol on a regular basis and using Excedrin up to 4 times daily for aches and
pains. Hemoglobin noted to be 8.0 with heme positive stool. EKG demonstrated sinus bradycardia with PACs. Troponin 0.015. proBNP 1590. Chest x-ray with mild central pulmonary vascular congestion. Head CT was negative for acute abnormality on
06/27/2023. MRI of brain 06/30/2022 without acute evidence of stroke.
At the time of this evaluation patient lying in bed complaining of neck pain. She appears anxious at times. She c/o intermittent palpitations that come and go. Notes elevated heart rate when she gets anxious. Tells me she takes Toprol 37.5 mg BID
but at times will take an extra 25-50 mg daily for palpitations. She smokes 1 pack daily and drinks 3-4 mudslides daily. Denies chest pain but will feel winded and dizzy with high heart rates
Progress Note - Leather Belt Maker
Subjective
Date of Service: July 03, 2023
Pt seen and examined. No complaints. No chest pain or shortness of breath.
Objective
Labs:
07/03/23 04:33
07/03/23 04:33
Labs
Hgb 9.9 g/dL (12.0-16.0) L 07/03/23 04:33
Hct 31.6 % (37.0-47.0) L 07/03/23 04:33
Plt Count 195 10^3/uL (130-400) 07/03/23 04:33
Sodium 135 mmol/L (135-145) 07/03/23 04:33
Potassium 3.3 mmol/L (3.5-5.1) L 07/03/23 04:33
BUN 20 mg/dl (7-17) H 07/03/23 04:33
Creatinine 0.7 mg/dL (0.6-1.0) 07/03/23 04:33
Glucose 88 mg/dl (70-99) 07/03/23 04:33
Vital Signs and I&O:
Vital Signs
Temp Pulse Resp BP Pulse Ox
97.8 F 76 16 131/96 98
07/03/23 03:39 07/03/23 08:03 07/03/23 03:39 07/03/23 08:03 07/03/23 03:39
Vital Signs
Temp Pulse Resp BP Pulse Ox
97.8 F 76 16 131/96 98
07/03/23 03:39 07/03/23 08:03 07/03/23 03:39 07/03/23 08:03 07/03/23 03:39
Intake & Output
07/01/23 07/02/23 07/03/23 07/04/23
06:59 06:59 06:59 06:59
Intake Total 420 / 420 1540 / 1540
Balance 420 / 420 1540 / 1540
Physical Exam
Physical Exam
General: No acute distress, AAOX3
Neck: Negative JVD
Heart: Regular, Negative S3 positive S1/S2, Negative S4, No murmur
Lungs: CTA b/l, negative wheezes/rales/rhonchi
Abd: Positive BS, NT/ND, neg rebound/rigidity/guarding
Ext: Negative cyanosis/clubbing/edema
Neuro: nonfocal
[2023-07-03] MEDS: LOPRESSOR 5 MG IV (10:53)
--- NOTE | 2023-07-03 11:14 | W.PN.HOSP.TC ---
Addendum entered and electronically signed by Surjit Bentley MD 07/03/23 16:15:
Patient seen and examined
Discussed with resident
Discussed with neurosurgery
Impression/plan:
Weakness
Neurologic evaluation negative for acute CVA.
C-spine MRI consistent with severe multilevel DJD and C3-C4 myelopathy.
Plan is for neurosurgical intervention tentatively on 06/04.
Hold anticoagulation.
Paroxysmal atrial fibrillation with periods of bradycardia.
TSH within normal limits.
Metoprolol stopped. Avoid any AV teo blocking agents.
Monitoring telemetry.
No further recommendation per cardiology.
Chronic anemia.
No evidence of acute blood loss.
Prior history of PUD with perforation.
Currently off Eliquis in preparation for surgical intervention on C-spine.
Monitor hemoglobin
Continue PPI.
Avoid NSAIDs
Original Note:
Today's Communication/Plan
-
Neurosurgery will plan for C3/C4 procedure 07/05. NPO post midnight for 07/05 surgery
Pain Control with IV Dilaudid
follow up with GI outpatient for upper endoscopy.
Continue PPI twice daily
PT/OT Eval.
Assessment / Plan
Assessment / Plan
Impression:
Presentation with generalized fatigue,. Of anxiety and palpitations.
Reported left-sided weakness.
Cervical pain.
Bradycardia.
Alcohol use disorder with concern for alcohol withdrawal
Chronic anemia slowly trending down hemoglobin and heme positive stool. Fe sat 8%, Ferritin 23.0
07/03 Hgb 9.9
07/01 MRI cervical spine: There is significant degenerative disk and joint disease in the cervical spine from C3 through T1, however the patient was unable to cooperate and I cannot evaluate for myelopathy.
as per Dr. Grant, pt will receive Valium prior to repeat cervical MRI. Based on images, a decision will be made as to need/timing of cervical spine intervention.
07/02 MRI Cervical spine: There is mild cord compression at C4-5, mild right ventral cord compression at C5-6 and C6-7. No other level of myelopathy.
There is severe central canal stenosis with cord compression and myelopathy or transverse myelitis at C3-4 due to soft and hard disk protrusion diffusely with a left central disk herniation and significant facet arthropathy with moderate to severe
bilateral foraminal narrowing.
Conditions prior to admission
Paroxysmal atrial fibrillation
Anticoagulation with Eliquis
Eliquis on hold
Prior history of CVA (fascial droop and aphasia March 2022)
Peptic ulcer disease with history of perforation
Essential hypertension
Hyperlipidemia
Anemia of chronic disease.
Anxiety.
Ongoing tobacco use disorder
Ongoing alcohol use disorder.
History of bladder mass with resection.
Status postcholecystectomy.
Status post AAA repair with graft in 2017.
Status post bariatric surgery sleeve gastrectomy.
History of spinal surgery.
Plan:
Presentation with severe anxiety.
Reported left upper extremity weakness
Prior history of CVA.
Current neurologic examination with no focal findings on admission as per Dr. Eddy
CT scan of the head with no acute intracranial process
MRI of the brain with no evidence of acute CVA.
Patient reports prior CVA, although with no evidence of old infarct on imaging.
Monitor neurologic status closely.
Hold Eliquis for potential cervical surgery
discussed with Dr. Jerry, due to restriction of cervical movement from cervical spine disease, endoscopy will be unable to be done at this time
Neurology input appreciated
discussed with Dr. Turner, she would like neurosurg input regarding cervical spine disease and Dr. Grant consult has been requested
MRI:There is mild cord compression at C4-5, mild right ventral cord compression at C5-6 and C6-7. No other level of myelopathy.
There is severe central canal stenosis with cord compression and myelopathy or transverse myelitis at C3-4 due to soft and hard disk protrusion diffusely with a left central disk herniation and significant facet arthropathy with moderate to severe
bilateral foraminal narrowing.
Paroxysmal atrial fibrillation.
Telemetry/ECG noted with sinus bradycardia with heart rate down to 30
TSH within normal limits
Patient reports taking extra dose of metoprolol with her palpitations and anxiety.
Off beta-yuliya since admission.
Cardiology consultation
Dr. Grant will be requesting pre-op cardio clearance if surgery to be performed
Consider EP workup.
Essential hypertension.
Most recent echocardiogram 11/07 with LVEF of 60% with no significant valvular abnormalities per
06/30/23 echocardiogram: Mild concentric left ventricular hypertrophy. Normal left ventricular chamber
�size. Normal left ventricular systolic function. Left ventricular ejection
�fraction is 66% by Blancas's method.� Diastolic function indeterminate.
�Normal right ventricular size and function.
�Indexed LA volume is severely abnormal (> 48 mL/m2).
�Mild to moderate mitral regurgitation.
�Trace tricuspid regurgitation. Estimated pulmonary artery pressure of 25 mmHg,
�assuming a right atrial pressure of 3 mmHg.
�No prior study available for comparison.
�
Worsening anemia with hemoglobin trending down to 8.6 (9.8 on 01/11, 14.3 on 10/10), 07/01 9.6
Microcytosis with iron deficiency
No clinical evidence of brisk hemorrhage
Heme positive on rectal exam
Patient reports daily intake of NSAIDs. On anticoagulation
She has a history of PUD with perforation
Alcohol use disorder
Anxiety/depression
Patient reports daily alcohol up to 8 drinks.
Alcohol level undetectable.
Urine drug screen negative.
Monitor closely
Continue MSAS protocol
DVT Prophylaxis:� US pending to rule out LLE and LUE clots given edema. US Negative for DVT left upper extremity� GI bleeding possibility as noted above.� Avoid mechanical or pharmacologic prophylaxis for now.� SCDs can be started if US are negative.
Code Status:� Full
Anticipated Discharge: > 48 hours
Subjective/Interval History
-
Date of Service: July 03, 2023
Objective Data
-
Labs:
Laboratory Results
07/03/23
04:33
WBC 7.7
Hgb 9.9 L
Hct 31.6 L
Plt Count 195
Sodium 135
Potassium 3.3 L
Chloride 110 H
Carbon Dioxide 26
BUN 20 H
Creatinine 0.7
Glucose 88
Calcium 8.3 L
Vital Signs:
Vital Signs
Temp Pulse Resp BP Pulse Ox
97.7 F 130 18 139/89 100
07/03/23 07:45 07/03/23 10:53 07/03/23 07:45 07/03/23 10:53 07/03/23 07:45
I&O
07/02/23 07/03/23 07/04/23
06:59 06:59 06:59
Intake Total 420 / 420 1540 / 1540
Balance 420 / 420 1540 / 1540
Review of Systems
-
All other systems: Not reviewed unless documented
Physical Exam
-
General: Well Developed and Well Nourished
HEENT: Normocephalic and Atraumatic
Respiratory: Clear to Auscultation
Cardiac: Regular Rhythm and S1/S2; Negative Murmur
GI: Nontender, Nondistended and Normal Bowel Sounds
Musculoskeletal: No Clubbing, No Cyanosis and No Edema
Neuro: Awake, Alert, Oriented and AO x 3
[2023-07-03] MEDS: DILAUDID 1 MG IV ×2 (14:19→20:33)
--- NOTE | 2023-07-03 14:28 | CM ---
Addendum entered by Carola Rasmussen RN 07/03/23 15:55:
Received call from [facility] liaison Jenny ([phone]) that the patient is current with them.
[facility]
Original Note:
Reviewed the chart notes. Per notes, plan is for anterior cervical discectomy and fusion (ACDF) this week. CM continues to be available to patient/family and is monitoring medical plan for needs at discharge.
Plan: Discharge plans will depend on the patient's progress.
--- NOTE | 2023-07-03 16:57 | PN.NS ---
Subjective
-
no events
Physical Exam
-
Exam:
mild weakness in left Ue and LE
b/l hyper reflexia
b/l hoffmans sign
CN's intact
AAOx3
Resp even and unlabored
MRI c-spine with what appear to be severe stenosis at C3/4 with hyper intense spinal cord signal
Problems
-
Problem Status Onset Code
Bradycardia R00.1
Anemia D64.9
Assessment / Plan
-
Cervical stenosis, Cervical myelopathy
-Or Monday for C3/4 ACDF
-Risks explained to patient at bedside, which include but are not limited to: infection, bleeding, numbness,weakness, tingling, pain, paralysis, CSF leak, loss in ROM, damage to esophagus/trachea/great vessels in the neck, hoarseness, swallowing
difficulties, risk of adjacent segment disease,failure to improve, need for further intervention
-NPO after MN on monday for OR on Monday
-clearances obtained
Today's Communication
-
[2023-07-03] MEDS: CRESTOR 10 MG PO (17:08)
[2023-07-03] MEDS: FEOSOL 325 MG PO (22:22)
[2023-07-04] VITALS (7 sets, daily range): BP systolic 129–163; BP diastolic 52–89; PULSE 78; O2SAT 98; BMI 23.2
[2023-07-04] MEDS: DILAUDID 1 MG IV ×4 (02:35→21:28)
[2023-07-04] MEDS: ULTRAM 50 MG PO ×3 (06:18→20:16)
[2023-07-04] MEDS: VITAMIN B1 100 MG PO ×2 (08:23→20:14)
[2023-07-04] MEDS: VITAMIN B-12 1000 MCG PO (08:23)
[2023-07-04] MEDS: COZAAR 50 MG PO ×2 (08:23→20:14)
[2023-07-04] MEDS: NSS (PRESERVATIVE FREE) 10 ML IV ×2 (08:24→20:14)
[2023-07-04] MEDS: PROTONIX IV 40 MG IV ×2 (08:24→20:15)
[2023-07-04] MEDS: FOLVITE 1 MG PO (08:24)
[2023-07-04] MEDS: NICODERM TRANSDERMAL 14 MG TRANSDERM (08:25)
--- NOTE | 2023-07-04 11:15 | W.PN.CARDCBS ---
Addendum entered and electronically signed by Desmond Hope MD 07/04/23 11:54:
I saw and examined the patient.
The Electro Mechanical Engineer's note was reviewed and I agree with the note.
Comment:
GEN: No distress, awake, Ox3
HEENT: supple, anicteric, mmm
LUNGS: CTA, no wheezes/rales
CV: Reg, S1/S2, /6 syst LSB, no gallop
ABD: soft, BS+, NT/ND
EXT: No edema
NEURO: Gross non-focal
SKIN: No rash
Plan:
She is still having bursts of atrial fibrillation. She is does have some sinus bradycardia as well.
Will try adding low-dose Toprol-XL 12.5 mg daily to try to reduce her A-fib burden perioperatively.
Okay to proceed with her surgery in AM.
Will need to resume Eliquis postoperatively. Continue telemetry
Original Note:
Today's Communication / Plan
-
Start Toprol XL 12.5 mg daily and hold for HR less than 50
Impression / Plan
-
PCP:Dr. Reba Maria
Property Management Accountant: Previously seen by Dr. Montserrat Castro ([place]), Seen as EP consult/new patient by Dr. Haskins 06/27/2023
Impression:
Sick sinus syndrome
Paroxysmal atrial fibrillation/flutter
Sinus bradycardia
Cervical stenosis C3/4 with cord impingement, scheduled for ACDF later this week
Anemia with heme positive stool
Chronic anticoagulation on Eliquis
Prior CVA (facial droop and aphasia) 03/2022
Hypertension
Hyperlipidemia
Migraine
Anxiety
Ongoing tobacco abuse
patient caught smoking in her room on 07/01/23
TURBT
Anxiety / Depression
Cholecystectomy open repair secondary to rupture and sepsis
AAA repair w/ graft [facility] 2017
Status post laparoscopic sleeve gastrectomy
Lumbar disc surgery [facility]
Lexiscan nuclear stress test 06/10/2022: EF 59%, no significant ischemia or scarring
Lexiscan Cardiolite stress test 06/24/2020: EF 73%, no significant ischemia or scarring
Holter monitor October 2022: Paroxysmal atrial fibrillation
Echo 11/04/2018: EF 60%, no significant valvular disease
Echo 06/30/2023: EF 66%, mild LVH, dilated left atrium, mild to moderate MR, trace TR, normal pulmonary artery pressure
Plan:
-Patient is scheduled for anterior cervical discectomy and fusion C3/4 on 07/05/23.
-From a CV standpoint the patient continues with paroxysms of Afib, but when in sinus she is bradycardic. Prior to admission patient was taking Lopressor 37.5 mg BID and then ordered Lopressor IV PRN earlier this admission. Will add Toprol XL 12.5
mg daily and hold for HR less than 50 starting 07/04/23.
-Patient with a h/o paroxysmal Afib and was on Eliquis 5 mg BID (age 62, Cre 0.7 and wt 63.19 kg) prior to admission. Hgb as low as 8.0 this admission and stools heme positive. Patient seen by GI team and plan is for PPI BID and follow up as an
outpatient. All NSAIDs to be avoided per GI.
-Eliquis has been on hold since admission. If patient has sustained Afib greater than 24 hours then could consider adding Heparin gtt. Will follow on tele.
-She is mild to moderate risk for her procedure but compensated and acceptable risk.
Clinical summary: Patient is a 62-year-old female with past medical history significant for paroxysmal atrial fibrillation on chronic anticoagulation with Eliquis, hypertension, hyperlipidemia, stroke, AAA repair, migraine headache, spinal stenosis,
bladder resection, tobacco abuse. She was seen as new patient in cardiology office 06/27/2023 to establish care and complained of progressively worsening left upper and lower extremity weakness and gait instability. She was referred to the emergency
department. She was found to be bradycardic with heart rates as low as 30 bpm but admitted to increasing metoprolol on her own secondary to palpitations. She was also noted to be anemic. Patient signed out AMA. Following discharge she reports she
did stop taking metoprolol. She presented back to emergency department 06/29/2023 with progressively worsening weakness and pain all over. Patient admits to drinking alcohol on a regular basis and using Excedrin up to 4 times daily for aches and
pains. Hemoglobin noted to be 8.0 with heme positive stool. EKG demonstrated sinus bradycardia with PACs. Troponin 0.015. proBNP 1590. Chest x-ray with mild central pulmonary vascular congestion. Head CT was negative for acute abnormality on
06/27/2023. MRI of brain 06/30/2022 without acute evidence of stroke.
At the time of this evaluation patient lying in bed complaining of neck pain. She appears anxious at times. She c/o intermittent palpitations that come and go. Notes elevated heart rate when she gets anxious. Tells me she takes Toprol 37.5 mg BID
but at times will take an extra 25-50 mg daily for palpitations. She smokes 1 pack daily and drinks 3-4 mudslides daily. Denies chest pain but will feel winded and dizzy with high heart rates
Progress Note - Property Management Accountant
Subjective
Date of Service: July 04, 2023
No palpitations
Objective
Labs:
07/03/23 04:33
07/03/23 04:33
Labs
Hgb 9.9 g/dL (12.0-16.0) L 07/03/23 04:33
Hct 31.6 % (37.0-47.0) L 07/03/23 04:33
Plt Count 195 10^3/uL (130-400) 07/03/23 04:33
Sodium 135 mmol/L (135-145) 07/03/23 04:33
Potassium 3.3 mmol/L (3.5-5.1) L 07/03/23 04:33
BUN 20 mg/dl (7-17) H 07/03/23 04:33
Creatinine 0.7 mg/dL (0.6-1.0) 07/03/23 04:33
Glucose 88 mg/dl (70-99) 07/03/23 04:33
Vital Signs and I&O:
Vital Signs
Temp Pulse Resp BP Pulse Ox
98.1 F 55 16 147/64 97
07/04/23 07:20 07/04/23 08:23 07/04/23 07:20 07/04/23 08:23 07/04/23 10:17
Vital Signs
Temp Pulse Resp BP Pulse Ox
98.1 F 55 16 147/64 97
07/04/23 07:20 07/04/23 08:23 07/04/23 07:20 07/04/23 08:23 07/04/23 10:17
Intake & Output
07/02/23 07/03/23 07/04/23 07/05/23
06:59 06:59 06:59 06:59
Intake Total 420 / 420 1540 / 1540 780 / 780
Balance 420 / 420 1540 / 1540 780 / 780
Physical Exam
Physical Exam
General: AAO x3
Skin: No rash
Heart: Reg, no murmur
Lungs: CTA B/L
Abd: +BS
Ext: No edema B/L
Neuro: nonfocal
--- NOTE | 2023-07-04 11:16 | W.PN.HOSP.TC ---
Addendum entered and electronically signed by Surjit Bentley MD 07/04/23 18:02:
Patient seen and examined.
Discussed with resident
Impression/plan
Severe cervical DJD/spinal stenosis with myelopathy.
Stable neurologically with no acute changes since admission.
Plan is for surgical intervention on 07/05.
Cardiovascular.
Cardiology input and clearance appreciated.
Noted with burst of rapid A-fib while off beta-blockers (discontinued given. Of bradycardia) rate reduced to lower dose of metoprolol. Monitor closely.
Anemia with stable hemoglobin and no evidence of acute blood loss.
Original Note:
Today's Communication/Plan
-
Awaiting Neurosurgical intervention on 06/04
Assessment / Plan
Assessment / Plan
Impression/plan:
Weakness
Neurologic evaluation negative for acute CVA.
C-spine MRI consistent with severe multilevel DJD and C3-C4 myelopathy.
Plan is for neurosurgical intervention tentatively on 06/04.
Hold anticoagulation.
Paroxysmal atrial fibrillation with periods of bradycardia.
TSH within normal limits.
Metoprolol stopped.� Avoid any AV teo blocking agents.
Monitoring telemetry.
No further recommendation per cardiology.
Chronic anemia.
No evidence of acute blood loss.
Prior history of PUD with perforation.
Currently off Eliquis in preparation for surgical intervention on C-spine.
Monitor hemoglobin
Continue PPI.
Avoid NSAIDs
Code Status:� Full
Anticipated Discharge: > 48 hours
Subjective/Interval History
-
Date of Service: July 04, 2023
Objective Data
-
Vital Signs:
Vital Signs
Temp Pulse Resp BP Pulse Ox
98.1 F 55 16 147/64 97
07/04/23 07:20 07/04/23 08:23 07/04/23 07:20 07/04/23 08:23 07/04/23 10:17
I&O
07/03/23 07/04/23 07/05/23
06:59 06:59 06:59
Intake Total 1540 / 1540 780 / 780
Balance 1540 / 1540 780 / 780
Physical Exam
-
General: Well Developed and Well Nourished
HEENT: Normocephalic and Atraumatic
Respiratory: Clear to Auscultation
Cardiac: Regular Rhythm and S1/S2; Negative Murmur
GI: Nontender, Nondistended and Normal Bowel Sounds
Musculoskeletal: No Clubbing, No Cyanosis and No Edema
Neuro: Awake, Alert, Oriented and AO x 3
[2023-07-04] MEDS: TOPROL XL PO (11:49)
[2023-07-04 13:41] LABS: tTG IgA Antibody 8.1 EU/ml (0-19); tTG IgG Antibody 39.3 EU/ml (0-19)
[2023-07-04] MEDS: TOPROL XL 12.5 MG PO (15:38)
--- NOTE | 2023-07-04 16:05 | CM ---
Reviewed the chart notes. To OR tomorrow for anterior cervical discectomy and fusion (ACDF). Patient is current with [facility]. CM continues to be available to patient/family and is monitoring medical plan for needs at discharge.
Plan: Discharge plan will be hopefully home with resumption of [facility].
[facility] VN
[2023-07-04] MEDS: CRESTOR 10 MG PO (17:32)
--- NOTE | 2023-07-04 17:42 | PTCARENOTE ---
[facility] d/c per protocol. Dr. Bentley notified and agreed.
[2023-07-04] MEDS: FEOSOL 325 MG PO (21:37)
[2023-07-05] VITALS (18 sets, daily range): BP systolic 116–164; BP diastolic 49–98; PULSE 65–69; BMI 23.2
[2023-07-05] MEDS: DILAUDID 1 MG IV ×4 (03:42→22:14)
[2023-07-05] MEDS: ULTRAM 50 MG PO (06:45)
[2023-07-05] MEDS: NICODERM TRANSDERMAL 14 MG TRANSDERM (08:31)
[2023-07-05] MEDS: NSS (PRESERVATIVE FREE) 10 ML IV ×2 (08:31→19:41)
[2023-07-05] MEDS: PROTONIX IV 40 MG IV ×2 (08:31→19:41)
[2023-07-05] MEDS: TOPROL XL 12.5 MG PO (08:31)
[2023-07-05] MEDS: VITAMIN B1 100 MG PO ×2 (08:32→19:42)
[2023-07-05] MEDS: FOLVITE 1 MG PO (08:32)
[2023-07-05] MEDS: VITAMIN B-12 1000 MCG PO (08:32)
[2023-07-05] MEDS: COZAAR 50 MG PO ×2 (08:32→19:42)
--- NOTE | 2023-07-05 09:14 | W.PN.CARDCBS ---
Today's Communication / Plan
-
Continues to have paroxysms of atrial fibrillation.
Continues to have marked sinus bradycardia especially at night.
Okay to continue very low-dose Toprol 12.5 mg daily.
Stable to proceed to the operating room today. Continue telemetry postoperatively.
Hemoglobin stable at 9.9. Resume Eliquis postprocedure when stable from orthopedic standpoint
Impression / Plan
-
PCP:Dr. Reba Maria
Inventory Audit Clerk: Previously seen by Dr. Montserrat Catsro ([place]), Seen as EP consult/new patient by Dr. Haskins 06/27/2023
Impression:
Sick sinus syndrome
Paroxysmal atrial fibrillation/flutter
Sinus bradycardia
Cervical stenosis C3/4 with cord impingement, scheduled for ACDF later this week
Anemia with heme positive stool
Chronic anticoagulation on Eliquis
Prior CVA (facial droop and aphasia) 03/2022
Hypertension
Hyperlipidemia
Migraine
Anxiety
Ongoing tobacco abuse
patient caught smoking in her room on 07/01/23
TURBT
Anxiety / Depression
Cholecystectomy open repair secondary to rupture and sepsis
AAA repair w/ graft [facility] 2017
Status post laparoscopic sleeve gastrectomy
Lumbar disc surgery [facility]
Lexiscan nuclear stress test 06/10/2022: EF 59%, no significant ischemia or scarring
Lexiscan Cardiolite stress test 06/24/2020: EF 73%, no significant ischemia or scarring
Holter monitor October 2022: Paroxysmal atrial fibrillation
Echo 11/04/2018: EF 60%, no significant valvular disease
Echo 06/30/2023: EF 66%, mild LVH, dilated left atrium, mild to moderate MR, trace TR, normal pulmonary artery pressure
Plan:
-Patient is scheduled for anterior cervical discectomy and fusion C3/4 on 07/05/23.
-From a CV standpoint the patient continues with paroxysms of Afib, but when in sinus she is bradycardic. Prior to admission patient was taking Lopressor 37.5 mg BID and then ordered Lopressor IV PRN earlier this admission. Cont Toprol XL 12.5 mg
daily and hold for HR less than 50. Ultimately I think she is a good candidate for ablation. She also may need a pacemaker in the future.
-Patient with a h/o paroxysmal Afib and was on Eliquis 5 mg BID (age 62, Cre 0.7 and wt 63.19 kg) prior to admission. Hgb as low as 8.0 this admission and stools heme positive. Patient seen by GI team and plan is for PPI BID and follow up as an
outpatient. All NSAIDs to be avoided per GI.
-Eliquis has been on hold since admission. Resume post procedure.
-She is mild to moderate risk for her procedure but compensated and acceptable risk.
Clinical summary: Patient is a 62-year-old female with past medical history significant for paroxysmal atrial fibrillation on chronic anticoagulation with Eliquis, hypertension, hyperlipidemia, stroke, AAA repair, migraine headache, spinal stenosis,
bladder resection, tobacco abuse. She was seen as new patient in cardiology office 06/27/2023 to establish care and complained of progressively worsening left upper and lower extremity weakness and gait instability. She was referred to the emergency
department. She was found to be bradycardic with heart rates as low as 30 bpm but admitted to increasing metoprolol on her own secondary to palpitations. She was also noted to be anemic. Patient signed out AMA. Following discharge she reports she
did stop taking metoprolol. She presented back to emergency department 06/29/2023 with progressively worsening weakness and pain all over. Patient admits to drinking alcohol on a regular basis and using Excedrin up to 4 times daily for aches and
pains. Hemoglobin noted to be 8.0 with heme positive stool. EKG demonstrated sinus bradycardia with PACs. Troponin 0.015. proBNP 1590. Chest x-ray with mild central pulmonary vascular congestion. Head CT was negative for acute abnormality on
06/27/2023. MRI of brain 06/30/2022 without acute evidence of stroke.
At the time of this evaluation patient lying in bed complaining of neck pain. She appears anxious at times. She c/o intermittent palpitations that come and go. Notes elevated heart rate when she gets anxious. Tells me she takes Toprol 37.5 mg BID
but at times will take an extra 25-50 mg daily for palpitations. She smokes 1 pack daily and drinks 3-4 mudslides daily. Denies chest pain but will feel winded and dizzy with high heart rates
Progress Note - Inventory Audit Clerk
Subjective
Date of Service: July 05, 2023
feels some afib.
Objective
Labs:
07/03/23 04:33
07/03/23 04:33
Labs
Hgb 9.9 g/dL (12.0-16.0) L 07/03/23 04:33
Hct 31.6 % (37.0-47.0) L 07/03/23 04:33
Plt Count 195 10^3/uL (130-400) 07/03/23 04:33
Sodium 135 mmol/L (135-145) 07/03/23 04:33
Potassium 3.3 mmol/L (3.5-5.1) L 07/03/23 04:33
BUN 20 mg/dl (7-17) H 07/03/23 04:33
Creatinine 0.7 mg/dL (0.6-1.0) 07/03/23 04:33
Glucose 88 mg/dl (70-99) 07/03/23 04:33
Vital Signs and I&O:
Vital Signs
Temp Pulse Resp BP Pulse Ox
97.8 F 67 18 152/64 96
07/05/23 07:21 07/05/23 08:31 07/05/23 07:21 07/05/23 08:32 07/05/23 07:21
Vital Signs
Temp Pulse Resp BP Pulse Ox
97.8 F 67 18 152/64 96
07/05/23 07:21 07/05/23 08:31 07/05/23 07:21 07/05/23 08:32 07/05/23 07:21
Intake & Output
07/03/23 07/04/23 07/05/23 07/06/23
06:59 06:59 06:59 06:59
Intake Total 1540 / 1540 780 / 780 1260 / 1260
Balance 1540 / 1540 780 / 780 1260 / 1260
Physical Exam
Physical Exam
GEN: No distress, awake, Ox3
HEENT: supple, anicteric, mmm
LUNGS: CTA, no wheezes/rales
CV: irreg, S1/S2, 1/6 syst LSB, no gallop
ABD: soft, BS+, NT/ND
EXT: No edema
NEURO: Gross non-focal
SKIN: No rash
--- NOTE | 2023-07-05 10:47 | W.PN.HOSP.TC ---
Addendum entered and electronically signed by Surjit Bentley MD 07/05/23 17:25:
Patient seen by resident.
Agree with assessment and plan
Cleared for OR
Monitor postoperatively in terms of hemodynamics and atrial fibrillation paroxysms.
Continue low-dose of beta-yuliya monitoring for recurrent bradycardia
Monitor hemoglobin.
Original Note:
Today's Communication/Plan
-
Severe cervical DJD/spinal stenosis with myelopathy.
Stable neurologically with no acute changes since admission.
Plan is for surgical intervention today
Assessment / Plan
Assessment / Plan
Impression/plan:
Weakness
Neurologic evaluation negative for acute CVA.
C-spine MRI consistent with severe multilevel DJD and C3-C4 myelopathy.
Plan is for neurosurgical intervention tentatively on 06/04.
Hold anticoagulation.
Paroxysmal atrial fibrillation with periods of bradycardia.
TSH within normal limits.
Low-dose Toprol-XL 12.5 mg daily to try to reduce her A-fib burden perioperatively.
Monitoring telemetry.
No further recommendation per cardiology.
Chronic anemia.
No evidence of acute blood loss.
Prior history of PUD with perforation.
Currently off Eliquis in preparation for surgical intervention on C-spine.
Resume Eliquis postprocedure when stable from orthopedic standpoint
Monitor hemoglobin
Continue PPI.
Avoid NSAIDs
Code Status:� Full
Anticipated Discharge: 24 - 48 hours
Subjective/Interval History
-
Date of Service: July 05, 2023
Objective Data
-
Vital Signs:
Vital Signs
Temp Pulse Resp BP Pulse Ox
97.8 F 67 18 152/64 96
07/05/23 07:21 07/05/23 08:31 07/05/23 07:21 07/05/23 08:32 07/05/23 07:21
I&O
07/04/23 07/05/23 07/06/23
06:59 06:59 06:59
Intake Total 780 / 780 1260 / 1260
Balance 780 / 780 1260 / 1260
Physical Exam
-
General: Well Developed and Well Nourished
HEENT: Normocephalic and Atraumatic
Respiratory: Clear to Auscultation
Cardiac: Regular Rhythm and S1/S2; Negative Murmur
GI: Nontender, Nondistended and Normal Bowel Sounds
Musculoskeletal: No Clubbing, No Cyanosis and No Edema
Neuro: Awake, Alert, Oriented and AO x 3
--- NOTE | 2023-07-05 13:07 | PTCARENOTE ---
report given to OR. pt sent down in bed after pre-op wipes were done. chart and ancef sent down to OR.
--- NOTE | 2023-07-05 13:57 | PTCARENOTE ---
pt to be transferred to 2S to 2108 per admissions. pt belongings were taken to 2S nursing station until room is ready.
[2023-07-05] MEDS: DILAUDID 0.25 MG IV ×2 (16:39→16:49)
--- NOTE | 2023-07-05 17:31 | SUR.PHASEI ---
Pt HR dropped to 38 SB, BP stable Pt asymptomatic alert and oriented. Dr. Gould aware, no intervention ordered.(pt has hx has been having same episodes on floor, followed by cardiology and hopitalist) Pt cleared by dr. Gould to go to floor on
telemetry.
[2023-07-05] MEDS: NSS 1000 IV (17:38)
[2023-07-05] MEDS: DECADRON 4 MG IV (18:05)
[2023-07-05] MEDS: CRESTOR 10 MG PO (18:05)
[2023-07-05] MEDS: TYLENOL 1000 MG PO (18:05)
--- NOTE | 2023-07-05 18:11 | SUR.PHASEI ---
Pt now in NSR, other VSS, a&O x3. Ant neck dressing remains Dry and intact. Pt cleared for d/c to floor on telemetry per Dr. Gould
--- NOTE | 2023-07-05 18:15 | PTCARENOTE ---
Pt arrived to 2S in bed. Full assessment completed. Anterior neck DSG C/D/I, cervical collar maintained. Activity restrictions reviewed, pt verbalized understanding. Telemetry applied, reading NSR. IVF infusing per order. PRN dilaudid provided for
breakthrough pain. Bed locked and in the lowest position, safety maintained. Oriented to room and call heath, friend at bedside.
[2023-07-05] MEDS: ROXICODONE 10 MG PO (19:41)
[2023-07-05] MEDS: COLACE 100 MG PO (19:41)
[2023-07-05] MEDS: SENOKOT PO (19:51)
[2023-07-05] MEDS: ANCEF 5 IV (22:05)
[2023-07-05] MEDS: FEOSOL 325 MG PO (22:05)
[2023-07-06] MEDS: TYLENOL 1000 MG PO ×2 (00:09→11:25)
[2023-07-06] MEDS: DECADRON 4 MG IV ×3 (00:09→11:26)
[2023-07-06] MEDS: ROXICODONE 10 MG PO ×2 (00:16→13:30)
[2023-07-06] MEDS: DILAUDID 1 MG IV ×3 (01:16→10:59)
[2023-07-06] MEDS: NSS 1000 IV ×2 (02:42→11:25)
[2023-07-06 03:38] VITALS: BP 125/63
[2023-07-06] MEDS: ANCEF 5 IV ×2 (06:12→13:19)
[2023-07-06] MEDS: TYLENOL PO ×2 (06:13→07:59)
[2023-07-06 08:00] VITALS: BP 129/54
[2023-07-06] MEDS: VITAMIN B-12 1000 MCG PO (08:06)
[2023-07-06] MEDS: TOPROL XL 12.5 MG PO (08:06)
[2023-07-06] MEDS: VITAMIN B1 100 MG PO (08:06)
[2023-07-06] MEDS: COZAAR 50 MG PO (08:07)
[2023-07-06] MEDS: FOLVITE 1 MG PO (08:07)
[2023-07-06] MEDS: COLACE 100 MG PO (08:08)
[2023-07-06] MEDS: SENOKOT 17.1999999999999993 MG PO (08:08)
[2023-07-06] MEDS: PROTONIX IV 40 MG IV (08:09)
[2023-07-06] MEDS: NSS (PRESERVATIVE FREE) 10 ML IV (08:09)
[2023-07-06] MEDS: NICODERM TRANSDERMAL 14 MG TRANSDERM (08:11)
--- NOTE | 2023-07-06 09:13 | CM ---
Addendum entered by SONIDO Moreno 07/06/23 12:33:
Met with patient after therapy sessions and spoke to attending. Plan for d/c today. [facility] referral sent in alldcripts with update patient going to her friend Lion Sigala's home at [address] [place] [address].
IMM reviewed and signed.
Original Note:
Met with patient who is post op day [address] Lua. She reports she has been up using the rolling walker. Explained PT and OT will see her to go over spine precautions. She plans to go to her friend Shivani's home and stay on first floor
which has bedroom and bathroom. She has a rolling walker and cane at home. CM will reach out to [facility] to confirm discharge address.
[facility] VN .
PLAN: home with VN.
[2023-07-06 10:00] VITALS: BP 150/69; PULSE 40; O2SAT 97
--- NOTE | 2023-07-06 10:50 | PN.NS ---
Addendum entered and electronically signed by Ronan Lua DO 07/06/23 10:55:
Ok to resume eliquis on POD#5
Original Note:
Subjective
-
POD#1 from C3/4 ACDF. doing well. ambulated with PT.
Physical Exam
-
Exam:
Strength improved
incision c/d/i
Problems
-
Problem Status Onset Code
Bradycardia R00.1
Anemia D64.9
Assessment / Plan
-
Cervical stenosis, Cervical myelopathy
POD#1 from C3/4 ACDF
-ok to d/c from nsx perspective
-will need to follow up in 2 weeks in the office
-will place d/c instructions
Today's Communication
-
[2023-07-06 11:33] VITALS: BP 165/91
--- NOTE | 2023-07-06 13:00 | W.DS.TRANS ---
DC Summary - Machine Set Up Technician
-
Discharge Instructions:
Discharge Diagnosis/Procedures Cervical spinal stenosis.
Pafib
Chronic anemia
Wound Care ANTERIOR/POSTERIOR CERVICAL DISCECTOMY AND
FUSION DISCHARGE INSTRUCTIONS
1. After you are discharged from the hospital,
call your neurosurgeon�s office at [phone]
to schedule a post-operative appointment for
approximately 2-3 weeks after surgery.
2. DO NOT apply bandages, lotions, creams or
ointments on the incision site. Do not scrub,
scratch or pick at the incision to avoid
infection or other complications. Wear loose
clothing and avoid friction/rubbing on the
incision. The incision site may itch at times.
This is a normal part of the healing process.
Keep your incision dry and open to the air after
surgery. REMOVE THE ENTIRE DRESSING THE DAY
AFTER SURGERY (this includes the clear dressing
if present and non-stick pad). DO NOT remove
steri strips. They will fall off on their own.
3. If you have Dermabond glue over your incision
site you may take a shower the day after
surgery. Use regular soap and water not the
special soap you were given before surgery.
4. If you have Sinai or steri strips at your
incision site you may shower 4 days after
surgery. Use regular soap and water, not the
special soap you were given before surgery. Do
not shower if there is any drainage, wait until
it stops then you may shower. Gently wash the
incision and pat dry.
5. If sutures or sinai need to be removed they
will be removed at your post-operative office
visit, unless your surgeon gives you different
instructions. DO NOT remove steri strips. They
will fall off on their own.
6. NO baths, swimming pools, saunas or
submerging of your incision in water until your
incision site is completely healed (i.e. no
scabs are visible, sutures have dissolved or
have been removed, pink scar is visible, etc.).
This will take approximately 3 weeks, but may
take longer.
7. You should not lift anything heavier than 10
pounds after surgery. We will give you further
instructions at your 2 week post op appointment
8. Driving will be discussed at your post-
operative visit. We strongly encourage you NOT
to drive until you are cleared by your
neurosurgeon
9. Your surgeon may prescribe a bone growth
simulator to help the healing of your fusion.
This is not necessary for all patients and your
surgeon will inform you if you need one. You
will be contacted by the associate from the
stimulator company after your discharge from the
hospital.
10. Cervical fusion patients SHOULD NOT take any
anti-inflammatory medications (Advil, Aleve,
Motrin, Ibuprofen, etc.) until cleared by your
surgeon. Inflammation is a part of the healing
process.
11. You should gradually increase your activity
as tolerated. We encourage you to walk daily,
even for brief periods of time. You should not
do stretching, exercising or physical therapy
until you are cleared by your surgeon.
12. Physical therapy will be discussed at your
post-operative visit. Some individuals may
require inpatient rehabilitation/therapy post-
operatively. You will be evaluated in the
hospital after your surgery to see if you may
benefit from inpatient versus outpatient
rehabilitation services. Some patients may
require home physical therapy and nursing
services. This will be determined by the
physical therapy team that evaluates you during
your hospital stay. These services will be set
up prior to your discharge home.
13. Call the office immediately or go to the
emergency room for any concerning symptoms that
develop after surgery, including, but not
limited to; fever > 101.0�, incision site
swelling/drainage/infection/breakdown, acute
onset bowel or bladder dysfunction, severe pain/
weakness/numbness/tingling, severe headaches,
nausea, vomiting, a change in mental status or
any other issues. DO NOT wait until your post-
operative appointment to address these or other
concerning symptoms.
14. Smoking is contraindicated in all surgical
patients. We strongly encourage you to stop
smoking prior to your surgery. Smoking
negatively impacts incision site healing and
significantly increases your risk of respiratory
complications during and after surgery.
15. It is ensured that patients will have
enough pain medication upon discharge from the
hospital to keep them comfortable until their
post-operative visit and or pain management
visit. If you follow with pain management and
they are prescribing pain medications, we may
defer to their office for post operative pain
control and refills. If you need to refill your
pain medication prior to your post-operative
appointment you should call you the office
during normal business hours (9:00 am - 4:00 pm)
, Monday through Monday. You should allow up to
48 hours (2 business days) for your refill to be
completed. Please ensure you have enough
medication to last through the weekend. If the
refill request is placed after 1:30pm on a
Monday, we cannot guarantee it will be completed
by the end of the day. No pain medication
refills will be done on weekends. If you go to
a rehabilitation facility upon discharge from
the hospital, all necessary medication will be
provided to you at that facility.
16. Cervical fusion patients may receive a soft
cervical collar while in the hospital depending
on your surgeon�s recommendations. It may be
removed for showering and when you are not
walking. We recommend that you wear it when
driving in the car, during therapy or walking
for more than 5 minutes. If you were prescribed
a hard cervical collar, it must be worn at all
times unless otherwise instructed by your
surgical team.
17. We strongly recommend that you use stool
softeners and/or laxatives (ie. Dulcolax, Senna,
Miralax) while taking narcotic pain medications
and muscle relaxers to minimize/avoid
constipation issues.
18. If you are taking anti-platelet and/or anti-
coagulation therapy (Aspirin, Plavix, Xarelto,
Pradaxa, Warfarin, Arixtra), instructions on
when to resume the medication will be provided
on your discharge medication list. Please
contact the office with any further questions.
f you have any other questions, please call the
office.
Stop these medications: NSAID
Instructions:
Stand-Alone Forms:
Changes to Home Medications: Yes
Discharge Medications:
DC Medications w/original date entered in [employer]
apixaban 5 mg tablet (Eliquis) 5 mg PO BID Blood Clot Prevention/Tx 06/30/23
nfnsjkt-virbxyyhrttlv-vpsucfle 250 mg-250 mg-65 mg tablet (Excedrin Extra Strength) 1 tab PO Q6H PRN Pain 06/30/23
citalopram 20 mg tablet (Celexa) 20 mg PO DAILY Depression 06/30/23
acetaminophen 500 mg tablet (Tylenol Extra Strength) 1,000 mg PO Q6H #60 tabs 07/06/23
ferrous sulfate 325 mg (65 mg iron) tablet (FeroSul) 325 mg PO HS #30 tabs 07/06/23
losartan 25 mg tablet 50 mg PO BID #60 tabs 07/06/23
metoprolol succinate 25 mg tablet,extended release 24 hr 12.5 mg PO DAILY #30 tabs 07/06/23
oxycodone 5 mg tablet 5 mg PO Q4HPRN PRN moderate pain #15 tabs 07/06/23
pantoprazole 40 mg tablet,delayed release (Protonix) 40 mg PO BID #60 tabs 07/06/23
rosuvastatin 10 mg tablet 10 mg PO QPM #30 tabs 07/06/23
Home Medication Changes
All of above
Pending Results: No
[2023-07-06] MEDS: FLUZONE QUAD 2023-2024 SYRINGE 0.5 ML IM (13:21)
--- NOTE | 2023-07-06 19:55 | W.PN.CARDCBS ---
Today's Communication / Plan
-
Continue low-dose metoprolol. Resume anticoagulation when okay with neurosurgery
Outpatient cardiac follow-up with Dr. Barrow, EP for future discussion of ablation, +/- PPM
Impression / Plan
-
PCP:Dr. Reba Maria
Customs Director: Previously seen by Dr. Montserrat Castro ([place]), Seen as EP consult/new patient by Dr. Haskins 06/27/2023
Impression:
Sick sinus syndrome
Paroxysmal atrial fibrillation/flutter
Sinus bradycardia
Cervical stenosis C3/4 with cord impingement, scheduled for ACDF later this week
Anemia with heme positive stool
Chronic anticoagulation on Eliquis
Prior CVA (facial droop and aphasia) 03/2022
Hypertension
Hyperlipidemia
Migraine
Anxiety
Ongoing tobacco abuse
patient caught smoking in her room on 07/01/23
TURBT
Anxiety / Depression
Cholecystectomy open repair secondary to rupture and sepsis
AAA repair w/ graft [facility] 2017
Status post laparoscopic sleeve gastrectomy
Lumbar disc surgery [facility]
Lexiscan nuclear stress test 06/10/2022: EF 59%, no significant ischemia or scarring
Lexiscan Cardiolite stress test 06/24/2020: EF 73%, no significant ischemia or scarring
Holter monitor October 2022: Paroxysmal atrial fibrillation
Echo 11/04/2018: EF 60%, no significant valvular disease
Echo 06/30/2023: EF 66%, mild LVH, dilated left atrium, mild to moderate MR, trace TR, normal pulmonary artery pressure
Plan:
s/p anterior cervical discectomy and fusion C3/4 on 07/05/23.
-Doing well postop without cardiovascular symptoms
-Per neurosurgical note, resume Eliquis on postop day 5
Paroxysmal atrial fibrillation with paroxysms of brief atrial fibrillation during this hospitalization.
-Patient was in atrial fibrillation when I entered the room and in sinus rhythm when I exited the room. She also has a history of bradycardia arrhythmia and pauses
-She is largely asymptomatic.
-Cont Toprol XL 12.5 mg daily
-Resume Eliquis anticoagulation when safer per neurosurgery
-Will arrange for outpatient cardiac follow-up with SOFIYA Bonner to discuss ablation once patient has recovered from current surgery.
History of anemia on anticoagulation
-Hgb as low as 8.0 this admission and stools heme positive. Patient seen by GI team and plan is for PPI BID and follow up as an outpatient.
- All NSAIDs to be avoided per GI.
-Monitor hemoglobin closely once anticoagulation resumed
-Could consider future Watchman evaluation as an outpatient
Will sign off, recall if needed
Outpatient cardiac follow-up to be arranged
Clinical summary: Patient is a 62-year-old female with past medical history significant for paroxysmal atrial fibrillation on chronic anticoagulation with Eliquis, hypertension, hyperlipidemia, stroke, AAA repair, migraine headache, spinal stenosis,
bladder resection, tobacco abuse. She was seen as new patient in cardiology office 06/27/2023 to establish care and complained of progressively worsening left upper and lower extremity weakness and gait instability. She was referred to the emergency
department. She was found to be bradycardic with heart rates as low as 30 bpm but admitted to increasing metoprolol on her own secondary to palpitations. She was also noted to be anemic. Patient signed out AMA. Following discharge she reports she
did stop taking metoprolol. She presented back to emergency department 06/29/2023 with progressively worsening weakness and pain all over. Patient admits to drinking alcohol on a regular basis and using Excedrin up to 4 times daily for aches and
pains. Hemoglobin noted to be 8.0 with heme positive stool. EKG demonstrated sinus bradycardia with PACs. Troponin 0.015. proBNP 1590. Chest x-ray with mild central pulmonary vascular congestion. Head CT was negative for acute abnormality on
06/27/2023. MRI of brain 06/30/2022 without acute evidence of stroke.
At the time of this evaluation patient lying in bed complaining of neck pain. She appears anxious at times. She c/o intermittent palpitations that come and go. Notes elevated heart rate when she gets anxious. Tells me she takes Toprol 37.5 mg BID
but at times will take an extra 25-50 mg daily for palpitations. She smokes 1 pack daily and drinks 3-4 mudslides daily. Denies chest pain but will feel winded and dizzy with high heart rates
Progress Note - Customs Director
Subjective
Date of Service: July 06, 2023
Seen and examined earlier this morning. This is a late entry. Patient was out of bed to chair feeling well without symptoms of chest pain/pressure, palpitations, dizziness or shortness of breath
Objective
Labs:
07/03/23 04:33
07/03/23 04:33
Labs
Hgb 9.9 g/dL (12.0-16.0) L 07/03/23 04:33
Hct 31.6 % (37.0-47.0) L 07/03/23 04:33
Plt Count 195 10^3/uL (130-400) 07/03/23 04:33
Sodium 135 mmol/L (135-145) 07/03/23 04:33
Potassium 3.3 mmol/L (3.5-5.1) L 07/03/23 04:33
BUN 20 mg/dl (7-17) H 07/03/23 04:33
Creatinine 0.7 mg/dL (0.6-1.0) 07/03/23 04:33
Glucose 88 mg/dl (70-99) 07/03/23 04:33
Vital Signs and I&O:
Vital Signs
Temp Pulse Resp BP Pulse Ox
98.0 F 76 18 165/91 98
07/06/23 11:33 07/06/23 11:33 07/06/23 11:33 07/06/23 11:07/06/23 11:33
Vital Signs
Temp Pulse Resp BP Pulse Ox
98.0 F 76 18 165/91 98
07/06/23 11:33 07/06/23 11:33 07/06/23 11:33 07/06/23 11:33 07/06/23 11:33
Intake & Output
07/04/23 07/05/23 07/06/23 07/07/23
06:59 06:59 06:59 06:59
Intake Total 780 / 780 1260 / 1260 100 / 100
Balance 780 / 780 1260 / 1260 100 / 100
Physical Exam
Physical Exam
GEN: No distress, awake, Ox3
HEENT: supple, anicteric, mmm
LUNGS: CTA, no wheezes/rales
CV: irreg, S1/S2, 1/6 syst LSB
ABD: soft, BS+, NT/ND
EXT: No edema
== END 2023-07-06 15:28 | disposition home health service (06) | DRG 472 ==
LOC: 2 SOUTH 13:34
PROVIDERS: Internal Medicine; Nurse Practitioner; ADMITTING PHYSICIAN Hospitalist; ATTENDING PHYSICIAN Internal Medicine; CONSULT PHYSICIAN Internal Medicine Cardiovascular Disease; CONSULT PHYSICIAN Internal Medicine Gastroenterology; CONSULT PHYSICIAN Neurological Surgery; EMERGENCY PHYSICIAN Student in an Organized Health Care Education/Training Program; OTHER PHYSICIAN Psychiatry & Neurology Neurology
PROC: 0RG Upper Joints, Fusion (ICD-10-PCS; 2023-07-05)
PROC: 0RG10J0 Fusion of Cervical Vertebral Joint with Synthetic Substitute, Anterior Approach, Anterior Column, Open Approach (ICD-10-PCS; 2023-07-05)
PROC: 0RT30ZZ Resection of Cervical Vertebral Disc, Open Approach (ICD-10-PCS; 2023-07-05)
DX: M48.02 Spinal stenosis, cervical region (principal); G99.2 Myelopathy in diseases classified elsewhere; I48.0 Paroxysmal atrial fibrillation; I10 Essential (primary) hypertension; I49.5 Sick sinus syndrome; D50.9 Iron deficiency anemia, unspecified; F41.9 Anxiety disorder, unspecified; F32.A Depression, unspecified; F17.210 Nicotine dependence, cigarettes, uncomplicated; E78.00 Pure hypercholesterolemia, unspecified; Z79.01 Long term (current) use of anticoagulants
CPT/HCPCS: 70551; 71046; 72040; 72141; 76000; 80048; 80053; 80061; 80306; 82077; 82607; 82728; 82746; 82784; 83516; 83540; 83550; 83880; 84443; 84484; 85025; 85027; 86231; 87070; 92610; 93005; 93306; 93971; 97116; 97163; 97167; 97168; 97530; 97535; 99285; 99406; C1713; J2916

== ENCOUNTER → 2024-07-02 12:47 | Outpatient (REF) | payer OTHER, SELFPAY ==
[2024-07-02 14:43] LABS: Blood Urea Nitrogen 24 mg/dl (7-17)
== END ==
LOC: REG 12:47
PROVIDERS: ATTENDING PHYSICIAN Anesthesiology
DX: M50.020 Cervical disc disorder with myelopathy, mid-cervical region, unspecified level (principal)
CPT/HCPCS: 36415; 82565; 84520

== ENCOUNTER → 2024-08-20 08:24 | Outpatient (REF) | payer OTHER, SELFPAY ==
[2024-08-20 10:44] VITALS: BMI 27.0
[2024-08-20 11:21] LABS: % Basophils 0.5 % (0-2); % Eosinophils 2.4 % (0-6); % Immature Granulocytes 0.5 % (0-0.5); % Lymphocytes 15.5 % (20.5-51.1); % Monocytes 11.2 % (1.7-9.3); % Neutrophils 69.9 % (42.2-75.2); Absolute Eosinophils 0.2 10^3/uL (0-0.7); Absolute Lymphocytes 1.2 10^3/uL (1.2-3.4); Absolute Monocytes 0.8 10^3/uL (0.1-0.6); Absolute Neutrophils 5.3 10^3/uL (1.4-6.5); Hemoglobin 8.1 g/dL (12.0-16.0); Mean Corp Hgb Conc. 28.9 g/dL (33.0-37.0); Mean Corpuscular Hgb 20.4 pg (27.0-31.0); Mean Corpuscular Volume 70.4 fL (81.0-99.0); Mean Platelet Volume 9.3 fL (7.4-10.4); Nucleated Red Blood Cells % 0 %; Platelet Count 312 10^3/uL (130-400); Red Blood Cell Count 3.98 10^6/uL (4.20-5.40); White Blood Cell Count 7.5 10^3/uL (4.8-10.8)
[2024-08-20 11:24] LABS: INR 1.18; PT 15.3 Sec (11.4-14.6)
[2024-08-20 11:25] LABS: ALT (SGPT) 11 U/L (0-35); AST (SGOT) 20 U/L (14-36); Albumin 3.8 g/dl (3.5-5.0); Alkaline Phosphatase 151 U/L (38-126); Blood Urea Nitrogen 20 mg/dl (7-17); Calcium 9.2 mg/dl (8.4-10.2); Carbon Dioxide 25 mmol/L (22-30); Chloride 110 mmol/L (98-107); Estimated Creatinine Clearance 78 ml/min; Glucose 97 mg/dl (70-99); Magnesium 1.7 mg/dl (1.6-2.3); Potassium 4.5 mmol/L (3.5-5.1); Sodium 142 mmol/L (135-145); Total Bilirubin 0.5 mg/dl (0.2-1.3); Total Protein 6.5 g/dl (6.3-8.2); eGFR > 60.00
[2024-08-20 17:39] LABS: Anisocytosis 2+; Hypochromasia 2+; Macrocytosis 2+; Normal RBC Morphology No; Polychromasia 1+
[2024-08-20 17:40] LABS: Ovalocytes Occasional; Stomatocytes Occasional
== END ==
LOC: REG 08:24
PROVIDERS: ATTENDING PHYSICIAN Internal Medicine Cardiovascular Disease; FAMILY PHYSICIAN Family Medicine
DX: I48.91 Unspecified atrial fibrillation (principal)
CPT/HCPCS: 36415; 75572; 80053; 83735; 85025; 85610; 86850; 86900; 86901; 93005; Q9967

== ENCOUNTER → 2024-08-28 17:33 | Outpatient (REF) | payer OTHER, SELFPAY | LOC: MRI 3T 17:33 | PROVIDERS: ATTENDING PHYSICIAN Anesthesiology | DX: M50.020 Cervical disc disorder with myelopathy, mid-cervical region, unspecified level (principal) | CPT/HCPCS: 72156; A9575 ==

== ENCOUNTER → 2024-08-29 11:15 | Outpatient (REF) | payer OTHER, SELFPAY ==
[2024-08-29 12:02] LABS: Hemoglobin 8.1 g/dL (12.0-16.0)
[2024-08-29 12:40] LABS: Iron 21 ug/dl (37-170)
[2024-08-29 12:50] LABS: Percent Saturation 4 % (20-50); Total Iron Binding Capacity 503 ug/dl (265-497)
[2024-08-29 13:19] LABS: Ferritin 9.1 ng/ml (11.1-264.0)
[2024-08-29 13:50] LABS: Folate 8.5 ng/ml (2.76-20); Vitamin B12 179 pg/ml (239-931)
[2024-08-29 14:00] LABS: IgA 257 mg/dl (70-400)
[2024-08-30 16:33] LABS: tTG IgA Antibody <1.02 FLU (0.00-4.99)
[2024-08-31 18:18] LABS: Endomysial IgA Antibody Titer <1:10 (<1:10)
== END ==
LOC: REG 11:15
PROVIDERS: ATTENDING PHYSICIAN Internal Medicine Gastroenterology; FAMILY PHYSICIAN Family Medicine; REFERRING PHYSICIAN Internal Medicine Cardiovascular Disease
DX: D50.9 Iron deficiency anemia, unspecified (principal)
CPT/HCPCS: 36415; 82607; 82728; 82746; 82784; 83516; 83540; 83550; 85018; 86231

== ENCOUNTER 2024-09-03 06:24 | Day surgery (SDC) | payer OTHER, SELFPAY ==
[2024-09-03 13:45] VITALS: BMI 25.4
[2024-09-03 13:47] VITALS: BMI 25.4
[2024-09-03 13:49] VITALS: BP 140/68
[2024-09-03 15:24] VITALS: BP 138/128
[2024-09-03 15:30] VITALS: BP 98/69
[2024-09-03 15:50] VITALS: BP 138/44
== END 2024-09-03 15:21 | disposition home or self-care (01) ==
LOC: SDS 06:24
PROVIDERS: ATTENDING PHYSICIAN Internal Medicine Gastroenterology
DX: D50.9 Iron deficiency anemia, unspecified (principal); Q43.8 Other specified congenital malformations of intestine; K56.2 Volvulus; K57.30 Diverticulosis of large intestine without perforation or abscess without bleeding; K29.70 Gastritis, unspecified, without bleeding; Z98.890 Other specified postprocedural states
CPT/HCPCS: 45378; 43239; 88305; 88342

== ENCOUNTER → 2024-09-20 12:55 | Outpatient (REF) | payer OTHER, SELFPAY | LOC: RAD 12:55 | PROVIDERS: ATTENDING PHYSICIAN Internal Medicine Gastroenterology | DX: K59.09 Other constipation (principal) | CPT/HCPCS: 74019 ==